=== PATIENT | female | born 1955 | race African-American/Black ===

== ENCOUNTER 2019-10-04 00:58 | Inpatient (IN) | payer MEDICAID ==
[~2019-10-04] VITALS: Ht 180.3 cm; Wt 111.6 kg
[2019-10-04 01:05] VITALS: BP 168/103
--- NOTE | 2019-10-04 01:05 | NUR ---
ED Nurse Note: Pt brought into ED by MAITE RA 69 for SOB. Pt states she has been short of breath for the past month and tonight while attempting to sleep it became worse and she could not breathe. Pt was given albuteral en route by MAITE, 20g IV on Lac started by MAITE. MAITE noted pt o2 sat was in the low 90s on scene before initiating breathing treatment and reported wheezing. When brought into the ED, pt was finishing breathing treatment started by charles at the time. Pt able to speak in full sentences, no cardiac distress noted. Pt is aaox4.
--- NOTE | 2019-10-04 01:15 | NUR ---
ED Nurse Note: Pt finished breathing treatment and taken off oxygen at this time. Pt is having no sob and oxygen sat is 96%, breathing normal unlabored, no use of accessory muscles.
[2019-10-04] MEDS: Albuterol ud Inhalation HHN SCH ×3 (01:21→22:00)
[2019-10-04] MEDS: Ipratropium 0.02% Inh Soln 2.5ml UD HHN SCH ×3 (01:21→22:00)
[2019-10-04 01:42] LABS: BASOPHILS % (AUTO) 1.5 % (0.0-2.0); EOSINOPHILS % (AUTO) 3.3 % (0.0-3.0); HEMATOCRIT 45.5 % (37.0-47.0); HEMOGLOBIN 14.3 G/DL (12.0-16.0); LYMPHOCYTES % (AUTO) 26.2 % (20.0-45.0); MEAN CORPUSCULAR VOLUME 93 FL (80-99); MONOCYTES % (AUTO) 7.9 % (1.0-10.0); PLATELET COUNT 328 K/UL (150-450); RED BLOOD COUNT 4.91 M/UL (4.20-5.40); RED CELL DISTRIBUTION WIDTH 12.2 % (11.6-14.8); WHITE BLOOD COUNT 5.1 K/UL (4.8-10.8)
[2019-10-04 01:50] LABS: ANION GAP 8 mmol/L (5-15); BLOOD UREA NITROGEN 17 mg/dL (7-18); CALCIUM 8.6 MG/DL (8.5-10.1); CARBON DIOXIDE 29 MMOL/L (21-32); CHLORIDE 107 MMOL/L (98-107); CREATININE 0.9 MG/DL (0.55-1.30); POTASSIUM 3.5 MMOL/L (3.5-5.1); SODIUM 144 MMOL/L (136-145)
[2019-10-04 02:00] LABS: ALANINE AMINOTRANSFERASE 25 U/L (12-78); ALBUMIN 3.2 G/DL (3.4-5.0); ALBUMIN/GLOBULIN RATIO 0.7 (1.0-2.7); ALKALINE PHOSPHATASE 95 U/L (46-116); ASPARTATE AMINO TRANSFERASE 18 U/L (15-37); BILIRUBIN,TOTAL 0.4 MG/DL (0.2-1.0)
--- NOTE | 2019-10-04 02:26 | Emergency Room Report ---
History of Present Illness General Chief Complaint: Dyspnea/Respdistress Source: Patient Present Illness HPI 64-year-old female history of anxiety history of cardiomyopathy, hypertension, has a iron caster presents with shortness of breath x1 month, patient states that tonight she felt like her chest was tight and could not get a good breath in, she then received duo nebs by EMS which resolved her symptoms, patient denied any chest pain no nausea no vomiting, she has no any dyspnea on exertion , she does endorse a little bit of a cough, no fevers no chills. Patient states she gets like this when she gets very anxious. Allergies: Coded Allergies: PANTOPRAZOLE (Verified Allergy, Unknown, 10/04/19) Patient History Past Medical History: see triage record Reviewed Nursing Documentation: PMH: Agreed; PSxH: Agreed Nursing Documentation-PMH Past Medical History: No History, Except For Review of Systems All Other Systems: negative except mentioned in HPI Physical Exam Vital Signs Date Time Temp Pulse Resp B/P (MAP) Pulse Ox O2 Delivery O2 Flow Rate FiO2 10/04/19 01:00 97.5 100 13 168/103 (124) 100 Room Air 10/04/19 01:21 21 Sp02 EP Interpretation: reviewed, normal General Appearance: well appearing, no apparent distress, alert Head: normocephalic, atraumatic Eyes: bilateral eye PERRL, bilateral eye EOMI ENT: uvula midline, moist mucus membranes Neck: supple, thyroid normal, supple/symm/no masses Respiratory: lungs clear, no respiratory distress, no retraction, no accessory muscle use Cardiovascular #1: normal peripheral pulses, regular rate, rhythm, no edema, no gallop, no murmur Gastrointestinal: non tender, soft, no guarding, no rebound Musculoskeletal: normal inspection Neurologic: alert, oriented x3 Psychiatric: mood/affect normal Skin: no rash, warm/dry Procedures Critical Care Time Critical Care Time Given the critical condition in which the patient arrived, the patient was immediately assessed by myself and the nurse, and cardiac monitoring initiated due to the potential for rapid decompensation of the patient's clinical condition. During the course of the patient's stay, I spent a considerable amount of time at the bedside performing serial re-evaluations of the patient's hemodynamic and clinical status because of the recognized potential threat to life or limb in this condition. I then had a chance to review not only all of the available current laboratory and radiographic studies obtained today, but I also reviewed old records available to me at the time. Additionally, any ancillary information available including agriculture manager records were reviewed. Sequential vital signs were obtained. Critical Care time of 34 minutes was performed exclusive of billable procedures. Medical Decision Making Diagnostic Impression: Primary Impression: Dyspnea Qualified Codes: R06.00 - Dyspnea, unspecified Additional Impressions: NSTEMI (non-ST elevated myocardial infarction) Chest pain Qualified Codes: R07.9 - Chest pain, unspecified ER Course 64-year-old female multiple comorbidities presents with shortness of breath that has been ongoing for 1 month that resolved with albuterol treatments, differential diagnosis includes ACS, pneumonia, URI, CHF exacerbation Patient with a large heart, patient is aware states that her iron caster is currently managing her symptoms Patient found to have an elevated troponin on the second troponin will give patient aspirin, Lovenox We will admit patient to telemetry for NSTEMI, chest pain and shortness of breath Patient admitted to Dr. Rose under [facility] group Laboratory Tests Test 10/04/19 01:20 10/04/19 03:20 White Blood Count 5.1 K/UL (4.8-10.8) Red Blood Count 4.91 M/UL (4.20-5.40) Hemoglobin 14.3 G/DL (12.0-16.0) Hematocrit 45.5 % (37.0-47.0) Mean Corpuscular Volume 93 FL (80-99) Mean Corpuscular Hemoglobin 29.1 PG (27.0-31.0) Mean Corpuscular Hemoglobin Concent 31.4 G/DL (32.0-36.0) L Red Cell Distribution Width 12.2 % (11.6-14.8) Platelet Count 328 K/UL (150-450) Mean Platelet Volume 6.0 FL (6.5-10.1) L Neutrophils (%) (Auto) 61.0 % (45.0-75.0) Lymphocytes (%) (Auto) 26.2 % (20.0-45.0) Monocytes (%) (Auto) 7.9 % (1.0-10.0) Eosinophils (%) (Auto) 3.3 % (0.0-3.0) H Basophils (%) (Auto) 1.5 % (0.0-2.0) Sodium Level 144 MMOL/L (136-145) Potassium Level 3.5 MMOL/L (3.5-5.1) Chloride Level 107 MMOL/L (98-107) Carbon Dioxide Level 29 MMOL/L (21-32) Anion Gap 8 mmol/L (5-15) Blood Urea Nitrogen 17 mg/dL (7-18) Creatinine 0.9 MG/DL (0.55-1.30) Estimate Glomerular Filtration Rate > 60 mL/min (>60) Glucose Level 150 MG/DL (74-106) H Calcium Level 8.6 MG/DL (8.5-10.1) Total Bilirubin 0.4 MG/DL (0.2-1.0) Aspartate Amino Transferase (AST) 18 U/L (15-37) Alanine Aminotransferase (ALT) 25 U/L (12-78) Alkaline Phosphatase 95 U/L (46-116) Troponin I 0.027 ng/mL (0.000-0.056) 0.126 ng/mL (0.000-0.056) Pro-B-Type Natriuretic Peptide 1231 pg/mL (0-125) H Total Protein 8.1 G/DL (6.4-8.2) Albumin 3.2 G/DL (3.4-5.0) L Globulin 4.9 g/dL Albumin/Globulin Ratio 0.7 (1.0-2.7) L Lipase 121 U/L (73-393) EKG Diagnostic Results EKG Time: 01:53 EP Interpretation: NSR, rate 96, QTc 505, no acute ST elevations, left axis deviation Rhythm Strip Diag. Results Rhythm Strip Time: 02:25 EP Interpretation: yes Rate: 70 Rhythm: NSR, no PVC's, no ectopy Chest X-Ray Diagnostic Results Chest X-Ray Diagnostic Results : Chest X-Ray Ordered: Yes # of Views/Limited/Complete: 1 View Indication: Shortness of Breath EP Interpretation: Yes Interpretation: no consolidation, other - cardiomegaly Impression: Other - cardiomegaly Electronically Signed by: Carson Jimenes MD Last Vital Signs Date Time Temp Pulse Resp B/P (MAP) Pulse Ox O2 Delivery O2 Flow Rate FiO2 10/04/19 01:27 91 18 100 Room Air 21 88 18 100 10/04/19 01:00 97.5 168/103 (124) Disposition: ADMITTED INPATIENT Condition: Stable Crason Jimenes MD Oct 04, 2019 02:26
[2019-10-04 02:35] VITALS: BP 155/87
--- NOTE | 2019-10-04 03:10 | NUR ---
ED Nurse Note: Repeat troponin drawn and sent to lab. Pt resting comfortably in bed at this time. No respiratory distress noted.
[2019-10-04] MEDS ORDERED: Enoxaparin 100mg Inj SUBQ ONE (04:15)
--- NOTE | 2019-10-04 05:55 | NUR ---
ED Nurse Note: report given to MARIELLA Rojas.
--- NOTE | 2019-10-04 06:00 | NUR ---
ED Nurse Note: Pt stable for transfer to tele unit. Pt taken to unit via gurney by 2 RN, connected to inspector fuel hose. Pt is aaox4, vss for pt as charted. Pt denie any pain at this time. Pt belongings sent with pt. No acute distress at this time.
--- NOTE | 2019-10-04 07:00 | NUR ---
NURSE NOTES: RECEIVED PATIENT FROM EMERGENCY ROOM NURSE AT 0623 VIA RNEY; PATIENT AWAKE, ALERT/ORIENTED X4, VERBALLY RESPONSIVE, DENIES PAIN, NO SIGNS AND SYMPTOMS OF ACUTE CARDIO RESPIRATORY DISTRESS/SHORTNESS OF BREATH, DENIES CHEST PAIN, PATIENT PLACED ON SPORTING GOODS SALESPERSON. IV INTACT TO RIGHT AND LEFT AC/GAUGE 20, NO REDNESS/SWELLING NOTED, FLUSHING WELL. ABDOMEN OBESE, NON TENDER, BOWEL SOUNDS AUDIBLE, PATIENT STATED THAT SHE HAD AN EPISODE OF DIARRHEA IN EMERGENCY ROOM, ASSISTED PATIENT TO BEDPAN X2, NO STOOL NOTED. ASSISTED WITH COMFORT. ORIENTATED PATIENT TO ROOM/ENVIRONMENT, ENCOURAGED PATIENT TO UTILIZE CALL LIGHT FOR ASSISTANCE, VERBALIZED UNDERSTANDING. BED IN LOWEST POSITION FOR SAFETY.
--- NOTE | 2019-10-04 07:37 | NUR ---
HAND-OFF: Report given to MARIELLA GRAVES.
--- NOTE | 2019-10-04 07:39 | History and Physical ---
History of Present Illness General Date patient seen: Oct 04, 2019 Reason for Hospitalization: Dyspnea/Respdistress Present Illness HPI This is a 64-year-old obese female with past medical history of obstructive sleep apnea noncompliant with CPAP, hypertension, hyperlipidemia, enlarged heart who presented to the emergency room with severe shortness of breath. Per patient this is been going on for few weeks. She has not been taking her medications nor has she seen a doctor for a while. She has been mourning the loss of her brother and cousin and has been feeling really down. Denied of admission no matter what she did she could not catch her breath. It was worse when she lied down. She denies any chest pain, palpitations, syncope, dizziness or lightheadedness. Patient feels like she does not need a counselor or psychologist to talk to and her daughters are her counselors and that is what she has been using to cope with the loss of her loved ones. She was diagnosed with "enlarged heart" a number of years ago. She does not know the name of her medications and she was unable to bring it with her when she was rushed to leave her house. Her will bring her medications later. She has had both a cardiac stress test and angiography in the past which was unrevealing. Past medical history: SOPHIA, cardiomyopathy, hypertension, hyperlipidemia Past surgical history: Tubal ligation, hernia repair, multiple left knee replacements Social history: History of alcohol use, daily 2 beers, denies smoking cigarettes or marijuana or any illicit drugs Family history: Brother recently from colon cancer Allergies: Coded Allergies: PANTOPRAZOLE (Verified Allergy, Unknown, 10/04/19) Medication History Scheduled Amlodipine Besylate* (Amlodipine Besylate*), 10 MG ORAL DAILY, (Reported) Atorvastatin Calcium* (Atorvastatin Calcium*), 10 MG ORAL BEDTIME, (Reported) Balsalazide Disodium (Balsalazide Disodium), 750 MG PO THREE TIMES A DAY, ( Reported) Carvedilol* (Carvedilol*), 3.125 MG ORAL EVERY 12 HOURS, (Reported) Gabapentin* (Gabapentin*), 300 MG ORAL THREE TIMES A DAY, (Reported) Losartan Potassium* (Losartan Potassium*), 100 MG ORAL DAILY, (Reported) Pantoprazole* (Pantoprazole*), 40 MG ORAL EVERY 12 HOURS, (Reported) Sucralfate* (Carafate*), 1 GM ORAL FOUR TIMES A DAY, (Reported) Patient History Healthcare decision maker Resuscitation status Advanced Directive on File Review of Systems Constitutional: Denies: no symptoms, see HPI, chills, sweats, fever, malaise, weakness, other Eye: Denies: no symptoms, see HPI, eye pain, blurred vision, tearing, double vision, nose pain, nose congestion, acuity changes, discharge, other ENT: Denies: no symptoms, see HPI, ear pain, ear discharge, nose pain, nose congestion, throat pain, throat swelling, mouth pain, hearing loss, nasal discharge, other Respiratory: Reports: shortness of breath Cardiovascular: Denies: no symptoms, see HPI, chest pain, edema, palpitations, syncope, PND, other Gastrointestinal: Denies: no symptoms, see HPI, abdominal pain, constipation, diarrhea, nausea, vomiting, melena, hematemesis, other Genitourinary: Denies: no symptoms, see HPI, discharge, dysuria, frequency, hematuria, pain, retention, incontinence, urgency, vag bleed/dc, other Musculoskeletal: Denies: no symptoms, see HPI, back pain, gout, joint pain, joint swelling, muscle pain, muscle stiffness, other Skin: Denies: no symptoms, see HPI, rash, change in color, change in hair/nails , dryness, lesions, other Psychiatric: Denies: no symptoms, see HPI, prior hx, anxiety, depressed feelings, emotional problems, SI, HI, hallucinations, other Neurological: Denies: no symptoms, see HPI, headache, numbness, paresthesia, seizure, tingling, tremors, focal weakness, syncope, dizziness, other Endocrine: Denies: no symptoms, see HPI, excessive sweating, flushing, intolerance to temperature, increased thirst, increased urine, unexplained weight loss, other Hematologic/Lymphatic: Denies: no symptoms, see HPI, anemia, blood clots, easy bleeding, easy bruising, swollen glands, diathesis, other Physical Exam General Appearance: WD/WN, no apparent distress, obese Lines, tubes and drains: peripheral HEENT: normocephalic, atraumatic, anicteric, mucous membranes moist, PERRL, EOMI Neck: non-tender, supple Respiratory/Chest: lungs clear, normal breath sounds, no respiratory distress, no accessory muscle use Cardiovascular/Chest: normal peripheral pulses, normal rate, regular rhythm, no gallop/murmur, no JVD Abdomen: normal bowel sounds, non tender, soft, no organomegaly, no mass Extremities: normal range of motion, non-tender, no edema, no cyanosis Skin Exam: normal pigmentation, warm/dry Neurologic: physician credentialing specialist II-XII grossly normal, no motor/sensory deficits, alert, oriented x 3, responsive, normal mood/affect Musculoskeletal: normal muscle bulk Last 24 Hour Vital Signs Date Time Temp Pulse Resp B/P (MAP) Pulse Ox O2 Delivery O2 Flow Rate FiO2 10/04/19 06:00 97.5 84 20 149/90 98 Room Air 10/04/19 02:35 97.5 84 16 155/87 96 Room Air 10/04/19 01:27 91 18 100 Room Air 21 88 18 100 10/04/19 01:21 90 18 97 Room Air 21 90 17 92 10/04/19 01:05 97.5 100 13 168/103 100 Non-Rebreather 15.0 10/04/19 01:05 100 13 Non-Rebreather 15.0 10/04/19 01:00 97.5 100 13 168/103 (124) 100 Room Air Intake and Output 10/03/19 10/04/19 19:00 07:00 Intake Total 200 ml Balance 200 ml Intake Oral 200 ml Laboratory Tests Test 10/04/19 01:20 10/04/19 03:20 White Blood Count 5.1 K/UL (4.8-10.8) Red Blood Count 4.91 M/UL (4.20-5.40) Hemoglobin 14.3 G/DL (12.0-16.0) Hematocrit 45.5 % (37.0-47.0) Mean Corpuscular Volume 93 FL (80-99) Mean Corpuscular Hemoglobin 29.1 PG (27.0-31.0) Mean Corpuscular Hemoglobin Concent 31.4 G/DL (32.0-36.0) L Red Cell Distribution Width 12.2 % (11.6-14.8) Platelet Count 328 K/UL (150-450) Mean Platelet Volume 6.0 FL (6.5-10.1) L Neutrophils (%) (Auto) 61.0 % (45.0-75.0) Lymphocytes (%) (Auto) 26.2 % (20.0-45.0) Monocytes (%) (Auto) 7.9 % (1.0-10.0) Eosinophils (%) (Auto) 3.3 % (0.0-3.0) H Basophils (%) (Auto) 1.5 % (0.0-2.0) Sodium Level 144 MMOL/L (136-145) Potassium Level 3.5 MMOL/L (3.5-5.1) Chloride Level 107 MMOL/L (98-107) Carbon Dioxide Level 29 MMOL/L (21-32) Anion Gap 8 mmol/L (5-15) Blood Urea Nitrogen 17 mg/dL (7-18) Creatinine 0.9 MG/DL (0.55-1.30) Estimat Glomerular Filtration Rate > 60 mL/min (>60) Glucose Level 150 MG/DL (74-106) H Calcium Level 8.6 MG/DL (8.5-10.1) Total Bilirubin 0.4 MG/DL (0.2-1.0) Aspartate Amino Transf (AST/SGOT) 18 U/L (15-37) Alanine Aminotransferase (ALT/SGPT) 25 U/L (12-78) Alkaline Phosphatase 95 U/L (46-116) Troponin I 0.027 ng/mL (0.000-0.056) 0.126 ng/mL (0.000-0.056) Pro-B-Type Natriuretic Peptide 1231 pg/mL (0-125) H Total Protein 8.1 G/DL (6.4-8.2) Albumin 3.2 G/DL (3.4-5.0) L Globulin 4.9 g/dL Albumin/Globulin Ratio 0.7 (1.0-2.7) L Lipase 121 U/L (73-393) Height (Feet): 5 Height (Inches): 11.00 Weight (Pounds): 250 Objective Narrative EKG personally reviewed by me shows normal sinus rhythm at 96 bpm, left atrial enlargement, LVH, prolonged QTC no acute ST-T changes Chest x-ray read by radiology: Cardiomegaly with bilateral interstitial edema. Assessment/Plan Problem List: (1) Dyspnea ICD Codes: R06.00 - Dyspnea, unspecified SNOMED: 857212371 Qualifiers: Qualified Codes: R06.00 - Dyspnea, unspecified (2) Chest pain ICD Codes: R07.9 - Chest pain, unspecified SNOMED: 43708731 Qualifiers: Qualified Codes: R07.9 - Chest pain, unspecified (3) Elevated troponin I level ICD Codes: R79.89 - Other specified abnormal findings of blood chemistry SNOMED: 909667172 (4) Obesity (BMI 30.0-34.9) ICD Codes: E66.9 - Obesity, unspecified SNOMED: 788143731916894 (5) HTN (hypertension) ICD Codes: I10 - Essential (primary) hypertension SNOMED: 06947366 (6) SOPHIA (obstructive sleep apnea) ICD Codes: G47.33 - Obstructive sleep apnea (adult) (pediatric) SNOMED: 36776604 (7) HLD (hyperlipidemia) ICD Codes: E78.5 - Hyperlipidemia, unspecified SNOMED: 59166431 (8) GERD (gastroesophageal reflux disease) ICD Codes: K21.9 - Gastro-esophageal reflux disease without esophagitis SNOMED: 066513689 Status: stable Assessment/Plan: This is a 64-year-old female who presented with shortness of breath. In the ER she was found to be hypertensive to systolic blood pressure of 168, elevated troponins up to 0.157, pro BMP 1231, her EKG showed normal sinus rhythm at 96 bpm, left atrial enlargement, LVH, prolonged QTC, no acute ST-T changes. 1. Hypertensive urgency 2. Elevated troponin levels without chest pain or acute ST-T changes on EKG 3. Hypertension 4. SOPHIA, noncompliant with home CPAP 5. Hyperlipidemia 6. Obesity 7. GERD Plan Admit to telemetry Serial cardiac enzymes and EKGs Continue home atorvastatin, amlodipine, carvedilol. Aspirin Cardiology consult 2D echocardiogram to evaluate LV function and look for any wall motion abnormalities Blood pressure control Resume CPAP nightly Patient counseled on weight loss. Patient offered counseling services for grief however she refused saying her daughters are her counselors I spent 70 minutes on this encounter. Greater than 50% spent on counseling care coordination. I spent an additional 35 minutes in reviewing previous hospitalizations, outside records. I also spent 15 minutes in advance directive discussion with patient. Will offer her POLST form and sign before discharge. Plan of care discussed with patient, cardiology and RN. Time of note may not reflect time of encounter. Darien Rose M.D. Oct 04, 2019 07:39
--- NOTE | 2019-10-04 07:40 | NUR ---
NURSE NOTES: Received pt in bed, AAO x 4. Room air. No c/o of pain/distress at this moment. IV on RAC and LAC 20g intact and patent, with saline lock. Side rails x 2. Bed in the lowest, locked, and alarm on. Call light within reach. Will continue to monitor
[2019-10-04] MEDS ORDERED: LORazepam 1mg tab ORAL PRN (07:45)
[2019-10-04] MEDS ORDERED: Nitroglycerin Subl 0.4mg tab SL PRN (07:45)
[2019-10-04] MEDS ORDERED: Miralax 17gm pkt ORAL PRN (07:45)
[2019-10-04 08:00] VITALS: BP 167/106
[2019-10-04 09:55] LABS: CHOLESTEROL 137 MG/DL (< 200); HDL CHOLESTEROL 94 MG/DL (40-60); TRIGLYCERIDES 40 MG/DL (30-150)
[2019-10-04] MEDS: Heparin 5000 units/ml inj SUBQ SCH ×2 (09:59→21:04)
--- NOTE | 2019-10-04 11:58 | NUR ---
*-* NO INSURANCE INFORMATION INT HEB AR UNABLE TO SEND CLINCALS OR REVIEWS *-*
[2019-10-04] MEDS ORDERED: BALSALAZIDE DI750 MG PO (14:51)
[2019-10-04] MEDS ORDERED: CARVEDILOL3.125 MG ORAL (14:51)
[2019-10-04] MEDS ORDERED: GABAPENTIN300 MG ORAL (14:51)
[2019-10-04] MEDS ORDERED: CARAFATE1 G1 ORAL (14:51)
[2019-10-04] MEDS ORDERED: AMLODIPINE BESY10 MG ORAL (14:51)
[2019-10-04] MEDS ORDERED: LOSARTAN POTASS50 MG ORAL (14:55)
[2019-10-04] MEDS ORDERED: ATORVASTATIN CA20 MG ORAL (14:55)
[2019-10-04] MEDS ORDERED: PANTOPRAZOLE SO40 MG ORAL (14:55)
--- NOTE | 2019-10-04 15:45 | Cardiac Electrophysiology PN ---
Subjective Subjective [id number] Objective Last 24 Hour Vital Signs Date Time Temp Pulse Resp B/P (MAP) Pulse Ox O2 Delivery O2 Flow Rate FiO2 10/04/19 09:57 167/106 10/04/19 09:00 Room Air 10/04/19 08:00 57 10/04/19 08:00 97.5 73 18 167/106 (126) 97 10/04/19 07:56 Room Air 10/04/19 06:00 97.5 84 20 149/90 98 Room Air 10/04/19 02:35 97.5 84 16 155/87 96 Room Air 10/04/19 01:27 91 18 100 Room Air 21 88 18 100 10/04/19 01:21 90 18 97 Room Air 21 90 17 92 10/04/19 01:05 97.5 100 13 168/103 100 Non-Rebreather 15.0 10/04/19 01:05 100 13 Non-Rebreather 15.0 10/04/19 01:00 97.5 100 13 168/103 (124) 100 Room Air Intake and Output 10/03/19 10/04/19 19:00 07:00 Intake Total 200 ml Balance 200 ml Intake Oral 200 ml Laboratory Tests Test 10/04/19 01:20 10/04/19 03:20 10/04/19 08:50 White Blood Count 5.1 K/UL (4.8-10.8) Red Blood Count 4.91 M/UL (4.20-5.40) Hemoglobin 14.3 G/DL (12.0-16.0) Hematocrit 45.5 % (37.0-47.0) Mean Corpuscular Volume 93 FL (80-99) Mean Corpuscular Hemoglobin 29.1 PG (27.0-31.0) Mean Corpuscular Hemoglobin Concent 31.4 G/DL (32.0-36.0) L Red Cell Distribution Width 12.2 % (11.6-14.8) Platelet Count 328 K/UL (150-450) Mean Platelet Volume 6.0 FL (6.5-10.1) L Neutrophils (%) (Auto) 61.0 % (45.0-75.0) Lymphocytes (%) (Auto) 26.2 % (20.0-45.0) Monocytes (%) (Auto) 7.9 % (1.0-10.0) Eosinophils (%) (Auto) 3.3 % (0.0-3.0) H Basophils (%) (Auto) 1.5 % (0.0-2.0) Sodium Level 144 MMOL/L (136-145) Potassium Level 3.5 MMOL/L (3.5-5.1) Chloride Level 107 MMOL/L (98-107) Carbon Dioxide Level 29 MMOL/L (21-32) Anion Gap 8 mmol/L (5-15) Blood Urea Nitrogen 17 mg/dL (7-18) Creatinine 0.9 MG/DL (0.55-1.30) Estimat Glomerular Filtration Rate > 60 mL/min (>60) Glucose Level 150 MG/DL (74-106) H Calcium Level 8.6 MG/DL (8.5-10.1) Total Bilirubin 0.4 MG/DL (0.2-1.0) Aspartate Amino Transf (AST/SGOT) 18 U/L (15-37) Alanine Aminotransferase (ALT/SGPT) 25 U/L (12-78) Alkaline Phosphatase 95 U/L (46-116) Troponin I 0.027 ng/mL (0.000-0.056) 0.126 ng/mL (0.000-0.056) 0.157 ng/mL (0.000-0.056) Pro-B-Type Natriuretic Peptide 1231 pg/mL (0-125) H Total Protein 8.1 G/DL (6.4-8.2) Albumin 3.2 G/DL (3.4-5.0) L Globulin 4.9 g/dL Albumin/Globulin Ratio 0.7 (1.0-2.7) L Lipase 121 U/L (73-393) Hemoglobin A1c 5.0 % (4.3-6.0) Triglycerides Level 40 MG/DL (30-150) Cholesterol Level 137 MG/DL (< 200) LDL Cholesterol 26 mg/dL (<100) HDL Cholesterol 94 MG/DL (40-60) H Cholesterol/HDL Ratio 1.5 (3.3-4.4) L Thyroid Stimulating Hormone (TSH) 0.597 uiU/mL (0.358-3.740) Lucas Low MD Oct 04, 2019 15:45
[2019-10-04] MEDS ORDERED: Lexiscan 0.4mg/5ml syringe IV PRN (15:48)
[2019-10-04] MEDS: Sucralfate 1gm tab ORAL SCH ×2 (17:34→21:01)
--- NOTE | 2019-10-04 17:54 | Diagnostic Imaging Report ---
Indication: Shortness of breath Technique: One view of the chest Comparison: none Findings: The heart is enlarged. There is bilateral interstitial congestion. No definite effusions. Impression: Cardiomegaly with bilateral interstitial edema
--- NOTE | 2019-10-04 18:52 | NUR ---
CASE MANAGEMENT: REVIEW 64 YEAR OLD FEMALE BIBA FROM HOME CC: SOB . CHEST PAIN . HX ANXIETY . CARDIOMYOPATHY . HTN SI: NSTEMI . DYSPNEA T 97.5 HR 57 RR 18 BP 167/106 SAT 97% ROOM AIR TROP 0.157 CXR -- CARDIOMEGALY WITH BILATERAL INTERSTITIAL EDEMA IS: NS IVF BOLUS X1 PREDNISONE 60MG PO X1 ATROVENT HHN X1 ALBUTEROL HHN X1 LOVENOX SUBQ X1 ASA 325MG PO X1 PATIENT ADMITTED TO TELEMETRY UNIT 10/04/2019 DCP: PATIENT IS FROM HOME
--- NOTE | 2019-10-04 19:09 | NUR ---
HAND-OFF: Report given to MARIELLA Torres.
--- NOTE | 2019-10-04 19:09 | NUR ---
NURSE NOTES: Received report from MARIELLA Roger, patient in stable condition, AOx4, denies pain at this time, resting in bed, bed low&locked, side rails upx2, call light within reach, will continue to monitor and reassess
[2019-10-04 20:59] VITALS: BP 152/89
[2019-10-05 00:01] VITALS: BP 146/84
[2019-10-05 03:10] LABS: BASOPHILS % (AUTO) 1.4 % (0.0-2.0); EOSINOPHILS % (AUTO) 1.4 % (0.0-3.0); HEMATOCRIT 38.8 % (37.0-47.0); HEMOGLOBIN 12.5 G/DL (12.0-16.0); LYMPHOCYTES % (AUTO) 33.5 % (20.0-45.0); MEAN CORPUSCULAR VOLUME 92 FL (80-99); MONOCYTES % (AUTO) 13.3 % (1.0-10.0); NEUTROPHILS % (AUTO) 50.3 % (45.0-75.0); PLATELET COUNT 300 K/UL (150-450); RED BLOOD COUNT 4.21 M/UL (4.20-5.40); RED CELL DISTRIBUTION WIDTH 12.3 % (11.6-14.8); WHITE BLOOD COUNT 5.6 K/UL (4.8-10.8)
[2019-10-05 03:31] LABS: ANION GAP 8 mmol/L (5-15); BLOOD UREA NITROGEN 20 mg/dL (7-18); CALCIUM 8.4 MG/DL (8.5-10.1); CARBON DIOXIDE 28 MMOL/L (21-32); CHLORIDE 110 MMOL/L (98-107); CREATININE 0.8 MG/DL (0.55-1.30); POTASSIUM 3.4 MMOL/L (3.5-5.1); SODIUM 146 MMOL/L (136-145)
[2019-10-05 04:00] VITALS: BP 112/58
--- NOTE | 2019-10-05 05:30 | Consultation ---
DATE OF CONSULTATION: 10/04/2019 CARDIOLOGY CONSULTATION CONSULTING PHYSICIAN: Lucas Low M.D. REFERRING PHYSICIAN: Ze Rivera M.D. ADDITIONAL REFERRING PHYSICIAN: Dr. Rose. REASON FOR CONSULTATION: Chest pain. HISTORY OF PRESENT ILLNESS: The patient is a very pleasant 64-year-old lady with history of anxiety and hypertension, who presented to the emergency room with shortness of breath of one-month duration. The patient stated that she felt some soreness in her throat. Per ER record, there was chest tightness, but the patient denies any chest pain. The patient denies any prior myocardial infarction, coronary artery disease, or congestive heart failure. REVIEW OF SYSTEMS: Negative other than what was mentioned in history of present illness. PAST MEDICAL HISTORY: As mentioned above. FAMILY HISTORY: Noncontributory. SOCIAL HISTORY: She lives at home. Does not smoke or drink alcohol. PHYSICAL EXAMINATION: VITAL SIGNS: Blood pressure 161/106, pulse 73, respirations 18, and temperature 97.5. HEAD AND NECK: Showed no JVD. LUNGS: Clear. CARDIOVASCULAR: Shows regular S1 and S2 with no gallop or murmur. ABDOMEN: Soft. EXTREMITIES: No pitting edema. LABORATORY AND DIAGNOSTIC STUDIES: EKG shows normal sinus rhythm with no acute ST-T wave abnormality. Echocardiogram showed normal EF. Troponins 0.027, 0.126, and 0.157. Sodium 144, potassium 3.5, BUN 17, creatinine 0.9, and glucose of 150. White count of 5.1, hematocrit of 14.2 hematocrit of 45.5, and platelet count 328,000. ASSESSMENT AND PLAN: 1. Chest pain in a patient with history of hypertension. The first troponin was negative; however, the two subsequent troponins were elevated even though they are mildly elevated, but they are rising. Currently, she does not have any chest pain or shortness of breath. We will repeat cardiac enzymes, repeat EKG, and schedule the patient for stress test in the morning. If troponin get really high, we may need to transfer the patient for cardiac catheterization. But again at this time, the patient does not have any chest pain and EKG does not show any ST elevation. 2. Hypertension. Add metoprolol to her medical regimen. The patient is also on nitroglycerin. 3. Obesity. 4. Anxiety disorder. Thank you very much, Dr. Rivera, for allowing me to participate in the care of this patient. Please do not hesitate to contact me for any questions regarding my evaluation. Lucas Low M.D. DR: KASIE JOB#: [id number] CC:
--- NOTE | 2019-10-05 07:16 | NUR ---
HAND-OFF: Report given to JesusRN,patient stable, plan of care endorsed.
--- NOTE | 2019-10-05 07:32 | NUR ---
NURSE NOTES: Received pt in bed, AAO x 3. NC 2L/min. c/o of shortness of breath, crying. Called RT for breathing treatment. IV on RAC 20g and LAC 20g intact and patent, with saline lock. Side rails x2. Bed in the lowest and locked. Bedside commode and walker noted at the bedside. Call light within reach. Will continue to monitor.
[2019-10-05] MEDS: Albuterol/Ipratropium 3ml neb HHN PRN ×2 (07:33→21:52)
[2019-10-05 08:00] VITALS: BP 148/101
--- NOTE | 2019-10-05 08:51 | NUR ---
CASE MANAGEMENT: REVIEW 10/05/2019 SI: NSTEMI. DYSPNEA T 97.5 HR 97 RR 20 B/P 148/101 SATS 97% ON 2L/NC NA 146 K 3.4 CL 110 BUN 20 GLU 108 CA 8.4 IS: COREG PO Q12H LIPITOR PO QHS NORVASC PO QD COZAAR PO QD CARAFATE PO QID TELE DCP: PATIENT IS FROM HOME PLAN OF CARE : LEXISCAN Addendum: 10/05/19 at 0904 by Mariah Duran CM INTERQUAL MET
[2019-10-05] MEDS: Sucralfate 1gm tab ORAL SCH ×4 (09:00→21:50)
[2019-10-05] MEDS: Heparin 5000 units/ml inj SUBQ SCH ×2 (09:00→21:51)
[2019-10-05] MEDS: Losartan 50mg tab ORAL SCH (09:00)
--- NOTE | 2019-10-05 09:50 | NUR ---
NURSE NOTES: Pt is off unit for NM
--- NOTE | 2019-10-05 10:20 | NUR ---
*-* INSURANCE *-* ALL CLINICALS AND REVIEWS HAVE BEEN FAXED TO: [facility] [phone] JODY Najera/JEAN PIERRE AGUILAR PROVIDED TRACKING#[id number] MERISSA PAL PH# FAX# REVIEWS/CLINICALS Addendum: 10/05/19 at 1103 by MIKAELA SYKES CM BS Ref# [id number] Merissa PAL yet fax#[phone]
--- NOTE | 2019-10-05 10:23 | NUR ---
NURSE NOTES: Pt is back on unit
--- NOTE | 2019-10-05 11:18 | Cardiac Electrophysiology PN ---
Assessment/Plan Assessment/Plan 1. Chest pain in a patient with history of hypertension. The first and last troponins were negative and the 3 middle ones only around 0.1. Currently, she does not have any chest pain or shortness of breath. Stress test pending today. 2. Hypertension. On Coreg 3.125 bid, Norvasc 10 and Cozaar 100 daily 3. Obesity. 4. Anxiety disorder. SONDRA RN Subjective Subjective Feeling better. No CP or SOB, Scheduled for stress test today Objective Last 24 Hour Vital Signs Date Time Temp Pulse Resp B/P (MAP) Pulse Ox O2 Delivery O2 Flow Rate FiO2 10/05/19 09:00 Room Air 10/05/19 08:00 97.5 65 20 148/101 (117) 97 10/05/19 08:00 74 10/05/19 07:33 97 Nasal Cannula 2.0 28 10/05/19 07:33 72 18 99 65 18 97 10/05/19 07:33 65 18 97 Nasal Cannula 2.0 28 10/05/19 05:30 82 14 98 Facial 28 10/05/19 04:11 78 10/05/19 04:00 98.0 63 18 112/58 (76) 98 10/05/19 03:14 80 13 97 Facial 28 10/05/19 01:41 84 17 98 Facial 28 10/05/19 00:15 90 15 98 Facial 28 10/05/19 00:01 97.6 73 18 146/84 (104) 100 10/05/19 00:00 96 Nasal Cannula 2.0 28 10/05/19 00:00 71 10/04/19 21:02 78 152/89 10/04/19 21:00 Room Air 10/04/19 20:59 97.8 78 18 152/89 (110) 100 10/04/19 20:00 81 10/04/19 16:00 78 10/04/19 12:00 83 Intake and Output 10/04/19 10/05/19 19:00 07:00 Intake Total 360 ml 240 ml Balance 360 ml 240 ml Intake Oral 360 ml 240 ml # Voids 6 1 # Bowel Movements 1 Laboratory Tests Test 10/04/19 18:35 10/05/19 02:55 Troponin I 0.109 ng/mL (0.000-0.056) 0.056 ng/mL (0.000-0.056) White Blood Count 5.6 K/UL (4.8-10.8) Red Blood Count 4.21 M/UL (4.20-5.40) Hemoglobin 12.5 G/DL (12.0-16.0) Hematocrit 38.8 % (37.0-47.0) Mean Corpuscular Volume 92 FL (80-99) Mean Corpuscular Hemoglobin 29.6 PG (27.0-31.0) Mean Corpuscular Hemoglobin Concent 32.1 G/DL (32.0-36.0) Red Cell Distribution Width 12.3 % (11.6-14.8) Platelet Count 300 K/UL (150-450) Mean Platelet Volume 5.7 FL (6.5-10.1) L Neutrophils (%) (Auto) 50.3 % (45.0-75.0) Lymphocytes (%) (Auto) 33.5 % (20.0-45.0) Monocytes (%) (Auto) 13.3 % (1.0-10.0) H Eosinophils (%) (Auto) 1.4 % (0.0-3.0) Basophils (%) (Auto) 1.4 % (0.0-2.0) Sodium Level 146 MMOL/L (136-145) H Potassium Level 3.4 MMOL/L (3.5-5.1) L Chloride Level 110 MMOL/L (98-107) H Carbon Dioxide Level 28 MMOL/L (21-32) Anion Gap 8 mmol/L (5-15) Blood Urea Nitrogen 20 mg/dL (7-18) H Creatinine 0.8 MG/DL (0.55-1.30) Estimat Glomerular Filtration Rate > 60 mL/min (>60) Glucose Level 108 MG/DL (74-106) H Calcium Level 8.4 MG/DL (8.5-10.1) L Pro-B-Type Natriuretic Peptide 1454 pg/mL (0-125) H Objective HEAD AND NECK: No JVD. LUNGS: Clear. CARDIOVASCULAR: Shows regular S1 and S2 with no gallop or murmur. ABDOMEN: Soft. EXTREMITIES: No pitting edema. Lucas Low MD Oct 05, 2019 11:18
[2019-10-05 12:00] VITALS: BP 146/70
--- NOTE | 2019-10-05 13:47 | General Progress Note ---
Assessment/Plan Problem List: (1) Dyspnea ICD Codes: R06.00 - Dyspnea, unspecified SNOMED: 041102516 Qualifiers: Qualified Codes: R06.00 - Dyspnea, unspecified (2) Chest pain ICD Codes: R07.9 - Chest pain, unspecified SNOMED: 44053626 Qualifiers: Qualified Codes: R07.9 - Chest pain, unspecified (3) Elevated troponin I level ICD Codes: R79.89 - Other specified abnormal findings of blood chemistry SNOMED: 386001558 (4) Obesity (BMI 30.0-34.9) ICD Codes: E66.9 - Obesity, unspecified SNOMED: 593767405079748 (5) HTN (hypertension) ICD Codes: I10 - Essential (primary) hypertension SNOMED: 92132756 (6) SOPHIA (obstructive sleep apnea) ICD Codes: G47.33 - Obstructive sleep apnea (adult) (pediatric) SNOMED: 73132701 (7) HLD (hyperlipidemia) ICD Codes: E78.5 - Hyperlipidemia, unspecified SNOMED: 59802545 (8) GERD (gastroesophageal reflux disease) ICD Codes: K21.9 - Gastro-esophageal reflux disease without esophagitis SNOMED: 167961602 Status: stable Assessment/Plan: This is a 64-year-old female who presented with shortness of breath. In the ER she was found to be hypertensive to systolic blood pressure of 168, elevated troponins up to 0.157 then normal, pro BMP 1231, her EKG showed normal sinus rhythm at 96 bpm, left atrial enlargement, LVH, prolonged QTC, no acute ST-T changes. CXR with mild edema. 1. Hypertensive urgency 2. Elevated troponin levels without chest pain or acute ST-T changes on EKG 3. Hypertension 4. SOPHIA, noncompliant with home CPAP 5. Hyperlipidemia 6. Obesity 7. GERD Plan telemetry Serial cardiac enzymes and EKGs, last troponin negative, she is for stress test today Continue home atorvastatin, amlodipine, carvedilol. Aspirin, Norvasc, cozar Cardiology consult appreciated 2D echocardiogram to evaluate LV function and look for any wall motion abnormalities---> LVH, diastolic dysfunction, atrial enlargement one dose of lasix 40mg IV, monitor for improvement Blood pressure control Resume CPAP nightly Patient counseled on weight loss. Patient offered counseling services for grief however she refused saying her daughters are her counselors I spent 40 minutes on this encounter. Greater than 50% spent on counseling care coordination. Plan of care discussed with patient, cardiology and RN. Time of note may not reflect time of encounter. Subjective Date patient seen: Oct 05, 2019 ROS Limited/Unobtainable: No Constitutional: Denies: no symptoms, chills, diaphoresis, fever, malaise, weakness, other Cardiovascular: Denies: no symptoms, chest pain, edema, irregular heart rate, lightheadedness, palpitations, syncope, other Respiratory: Reports: shortness of breath Gastrointestinal/Abdominal: Denies: no symptoms, abdomen distended, abdominal pain, black stools, tarry stools, blood in stool, constipated, diarrhea, difficulty swallowing, nausea, poor appetite, poor fluid intake, rectal bleeding , vomiting, other Genitourinary: Denies: no symptoms, burning, discharge, frequency, flank pain, hematuria, incontinence, pain, urgency, other Neurologic/Psychiatric: Denies: no symptoms, anxiety, depressed, emotional problems, headache, numbness, paresthesia, pre-existing deficit, seizure, tingling, tremors, weakness, other Endocrine: Denies: no symptoms, excessive sweating, flushing, intolerance to cold, intolerance to heat, increased hunger, increased thirst, increased urine, unexplained weight gain, unexplained weight loss, other Hematologic/Lymphatic: Denies: no symptoms, anemia, easy bleeding, easy bruising, other Allergies: Coded Allergies: PANTOPRAZOLE (Verified Allergy, Unknown, 10/04/19) Subjective wore cpap and slept well. this morning has sob and placed on O2. she is going for stress test today Objective Last 24 Hour Vital Signs Date Time Temp Pulse Resp B/P (MAP) Pulse Ox O2 Delivery O2 Flow Rate FiO2 10/05/19 12:00 97.3 91 18 146/70 (95) 96 10/05/19 09:00 Room Air 10/05/19 08:00 97.5 65 20 148/101 (117) 97 10/05/19 08:00 74 10/05/19 07:33 97 Nasal Cannula 2.0 28 10/05/19 07:33 72 18 99 65 18 97 10/05/19 07:33 65 18 97 Nasal Cannula 2.0 28 10/05/19 05:30 82 14 98 Facial 28 10/05/19 04:11 78 10/05/19 04:00 98.0 63 18 112/58 (76) 98 10/05/19 03:14 80 13 97 Facial 28 10/05/19 01:41 84 17 98 Facial 28 10/05/19 00:15 90 15 98 Facial 28 10/05/19 00:01 97.6 73 18 146/84 (104) 100 10/05/19 00:00 96 Nasal Cannula 2.0 28 10/05/19 00:00 71 10/04/19 21:02 78 152/89 10/04/19 21:00 Room Air 10/04/19 20:59 97.8 78 18 152/89 (110) 100 10/04/19 20:00 81 10/04/19 16:00 78 Intake and Output 10/04/19 10/05/19 19:00 07:00 Intake Total 360 ml 240 ml Balance 360 ml 240 ml Intake Oral 360 ml 240 ml # Voids 6 1 # Bowel Movements 1 Laboratory Tests 10/04/19 18:35: Troponin I 0.109H 10/05/19 02:55: Troponin I 0.056, White Blood Count 5.6, Red Blood Count 4.21, Hemoglobin 12.5, Hematocrit 38.8, Mean Corpuscular Volume 92, Mean Corpuscular Hemoglobin 29.6, Mean Corpuscular Hemoglobin Concent 32.1, Red Cell Distribution Width 12.3, Platelet Count 300, Mean Platelet Volume 5.7L, Neutrophils (%) (Auto) 50.3, Lymphocytes (%) (Auto) 33.5, Monocytes (%) (Auto) 13.3H, Eosinophils (%) (Auto) 1.4, Basophils (%) (Auto) 1.4, Sodium Level 146H, Potassium Level 3.4L, Chloride Level 110H, Carbon Dioxide Level 28, Anion Gap 8, Blood Urea Nitrogen 20H, Creatinine 0.8, Estimat Glomerular Filtration Rate > 60, Glucose Level 108H , Calcium Level 8.4L, Pro-B-Type Natriuretic Peptide 1454H Height (Feet): 5 Height (Inches): 11.00 Weight (Pounds): 250 Objective General Appearance: WD/WN, no apparent distress, obese Lines, tubes and drains: peripheral HEENT: normocephalic, atraumatic, anicteric, mucous membranes moist, PERRL, EOMI Neck: non-tender, supple Respiratory/Chest: lungs clear, normal breath sounds, no respiratory distress, no accessory muscle use Cardiovascular/Chest: normal peripheral pulses, normal rate, regular rhythm, no gallop/murmur, no JVD Abdomen: normal bowel sounds, non tender, soft, no organomegaly, no mass Extremities: normal range of motion, non-tender, no edema, no cyanosis Skin Exam: normal pigmentation, warm/dry 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 Oct 05, 2019 13:47
[2019-10-05 16:00] VITALS: BP 135/79
--- NOTE | 2019-10-05 16:06 | Diagnostic Imaging Report ---
Indications: Chest pain Technique: Single day single isotope protocol utilized. Initially, resting images obtained using IV administration 10 millicuries 99M technetium Myoview. Subsequently, patient underwent lexiscan stress testing. See cardiology report for details. During Lexiscan infusion, IV administration 32.4 mCi 99 M technetium Myoview. SPECT and planar images obtained. SPECT images gated to 8 phases of the cardiac cycle were also obtained, and reformatted into cine images for evaluation of ejection fraction. Comparison: none Findings: Per cardiology report, patient experienced shortness of breath, headache, nausea. Per cardiology report, resting EKG demonstrates . No ST-T wave changes noted during infusion.. Imaging demonstrates decreased perfusion in the anterior wall which improves on the resting images. There is mild left ventricular chamber dilatation.. Calculated post stress ejection fraction 37%. Hypokinesis appears to be global Impression: Nonischemic clinical response to pharmacologic stress, per cardiology report Nonischemic electrocardiographic response to pharmacologic stress, per cardiology report Anterior wall perfusion defect, suspicious for anterior wall ischemia Calculated post stress ejection fraction 37%
--- NOTE | 2019-10-05 19:49 | NUR ---
HAND-OFF: Report given to MARIELLA Quinn.
--- NOTE | 2019-10-05 19:50 | NUR ---
NURSE NOTES: received pt from Kana WOLFF., pt is awake and AOx4 Kittitian speaker. pt states no pain at this moment. no SOB noted at this time with RA , O2sat is at 98%. previous nurse states no dysrhythmia.bed at the lowest position, alarmed, and locked. Left hand 22G Saline Locked intact, clean, and patent. call light within reach. will continue to monitor pt with plan of care.
--- NOTE | 2019-10-06 02:15 | NUR ---
NURSE NOTES: change the bed for the pt. no SOB noted. pt is off from the bipap at this moment. call light within reach.
[2019-10-06] MEDS: Sucralfate 1gm tab ORAL SCH ×4 (06:18→20:33)
[2019-10-06 07:14] LABS: ANION GAP 9 mmol/L (5-15); BLOOD UREA NITROGEN 20 mg/dL (7-18); CALCIUM 8.9 MG/DL (8.5-10.1); CARBON DIOXIDE 25 MMOL/L (21-32); CHLORIDE 110 MMOL/L (98-107); CREATININE 0.8 MG/DL (0.55-1.30); POTASSIUM 3.8 MMOL/L (3.5-5.1); SODIUM 144 MMOL/L (136-145)
--- NOTE | 2019-10-06 07:31 | NUR ---
NURSE NOTES: Report received from MARIELLA Mora. Pt. AOx4. RA. Voiced feeling much better today. L H 22g IV site intact. Bed on lowest position, side rails upx2, brakes engaged. Call light within easy reach. Fall precaution reminder given. Plan of care communicated.
--- NOTE | 2019-10-06 07:57 | NUR ---
HAND-OFF: Report given to Rex WOLFF., pt is in stable condition.
[2019-10-06 08:00] VITALS: BP 141/73
--- NOTE | 2019-10-06 08:10 | NUR ---
NURSE NOTES: L IV swollen, removed.
[2019-10-06] MEDS: Losartan 50mg tab ORAL SCH (09:19)
[2019-10-06] MEDS: Furosemide 40mg tab ORAL SCH (09:20)
[2019-10-06] MEDS: Heparin 5000 units/ml inj SUBQ SCH ×2 (09:23→20:34)
[2019-10-06] MEDS ORDERED: FUROSEMIDE40 MG ORAL ×3 (10:03→14:09)
--- NOTE | 2019-10-06 10:04 | Discharge Summary ---
Discharge Summary Hospital Course Date of Admission Oct 04, 2019 at 04:51 Date of Discharge 10/06/2019 Admitting Diagnosis chest pain, sob, nstemi HPI Danisha Can is a 64 year old female who was admitted on Oct 04, 2019 at 04: 51 for Chest Pain/Shortness Of Breath/Nstemi Hospital Course This is a 64-year-old female who presented with shortness of breath. In the ER she was found to be hypertensive to systolic blood pressure of 168, elevated troponins up to 0.157 then normal, pro BMP 1231, her EKG showed normal sinus rhythm at 96 bpm, left atrial enlargement, LVH, prolonged QTC, no acute ST-T changes. CXR with mild edema. 1. Hypertensive urgency 2. Elevated troponin levels without chest pain or acute ST-T changes on EKG 3. Hypertension 4. SOPHIA, noncompliant with home CPAP 5. Hyperlipidemia 6. Obesity 7. GERD Plan telemetry Serial cardiac enzymes and EKGs, last troponin negative, she is for stress test today Continue home atorvastatin, amlodipine, carvedilol. Aspirin, Norvasc, cozar Cardiology consult appreciated 2D echocardiogram to evaluate LV function and look for any wall motion abnormalities---> LVH, diastolic dysfunction, atrial enlargement one dose of lasix 40mg IV, monitor for improvement Blood pressure control Resume CPAP nightly Patient counseled on weight loss. Patient offered counseling services for grief however she refused saying her daughters are her counselors I spent 40 minutes on this encounter. Greater than 50% spent on counseling care coordination. Plan of care discussed with patient, cardiology and RN. Time of note may not reflect time of encounter. Discharge Discharge Disposition Patient was discharged to Darien Rose M.D. Oct 06, 2019 10:04
--- NOTE | 2019-10-06 10:12 | General Progress Note ---
Assessment/Plan Problem List: (1) Dyspnea ICD Codes: R06.00 - Dyspnea, unspecified SNOMED: 298827195 Qualifiers: Qualified Codes: R06.00 - Dyspnea, unspecified (2) Chest pain ICD Codes: R07.9 - Chest pain, unspecified SNOMED: 06051891 Qualifiers: Qualified Codes: R07.9 - Chest pain, unspecified (3) Elevated troponin I level ICD Codes: R79.89 - Other specified abnormal findings of blood chemistry SNOMED: 709520976 (4) Obesity (BMI 30.0-34.9) ICD Codes: E66.9 - Obesity, unspecified SNOMED: 206851487267780 (5) HTN (hypertension) ICD Codes: I10 - Essential (primary) hypertension SNOMED: 75624679 (6) SOPHIA (obstructive sleep apnea) ICD Codes: G47.33 - Obstructive sleep apnea (adult) (pediatric) SNOMED: 81798574 (7) HLD (hyperlipidemia) ICD Codes: E78.5 - Hyperlipidemia, unspecified SNOMED: 65971375 (8) GERD (gastroesophageal reflux disease) ICD Codes: K21.9 - Gastro-esophageal reflux disease without esophagitis SNOMED: 362389596 Status: stable Assessment/Plan: This is a 64-year-old female who presented with shortness of breath. In the ER she was found to be hypertensive to systolic blood pressure of 168, elevated troponins up to 0.157 then normal, pro BMP 1231, her EKG showed normal sinus rhythm at 96 bpm, left atrial enlargement, LVH, prolonged QTC, no acute ST-T changes. CXR with mild edema. 1. Hypertensive urgency 2. Elevated troponin levels without chest pain or acute ST-T changes on EKG 3. Hypertension 4. SOPHIA, noncompliant with home CPAP 5. Hyperlipidemia 6. Obesity 7. GERD Plan telemetry Serial cardiac enzymes and EKGs, last troponin negative, she is for stress test today Continue home atorvastatin, amlodipine, carvedilol. Aspirin, Norvasc, cozar Cardiology consult appreciated 2D echocardiogram to evaluate LV function and look for any wall motion abnormalities---> LVH, diastolic dysfunction, atrial enlargement one dose of lasix 40mg IV, monitor for improvement Blood pressure control Resume CPAP nightly Patient counseled on weight loss. Patient offered counseling services for grief however she refused saying her daughters are her counselors I spent 40 minutes on this encounter. Greater than 50% spent on counseling care coordination. Plan of care discussed with patient, cardiology and RN. Time of note may not reflect time of encounter. Subjective Date patient seen: Oct 06, 2019 Allergies: Coded Allergies: PANTOPRAZOLE (Verified Allergy, Unknown, 10/04/19) Subjective wore cpap and slept well. this morning has sob and placed on O2. she is going for stress test today Objective Last 24 Hour Vital Signs Date Time Temp Pulse Resp B/P (MAP) Pulse Ox O2 Delivery O2 Flow Rate FiO2 10/06/19 09:21 85 141/73 10/06/19 09:20 85 141/73 10/06/19 09:19 141/73 10/06/19 03:26 100 10/06/19 02:54 84 24 96 Facial 28 10/06/19 01:46 86 25 97 Facial 28 10/05/19 23:36 80 10/05/19 23:20 90 15 96 Facial 28 10/05/19 21:56 84 18 95 Room Air 21 10/05/19 21:56 95 Room Air 21 10/05/19 21:52 86 18 99 Room Air 21 84 18 95 10/05/19 21:00 73 98/41 10/05/19 21:00 Room Air 10/05/19 20:25 84 10/05/19 16:00 97.2 88 20 135/79 (97) 97 10/05/19 16:00 86 10/05/19 12:00 85 10/05/19 12:00 97.3 91 18 146/70 (95) 96 Intake and Output 10/05/19 10/06/19 19:00 07:00 Intake Total 360 ml Balance 360 ml Intake Oral 360 ml # Voids 4 2 # Bowel Movements 1 2 Laboratory Tests 10/06/19 06:00: Sodium Level 144, Potassium Level 3.8, Chloride Level 110H, Carbon Dioxide Level 25, Anion Gap 9, Blood Urea Nitrogen 20H, Creatinine 0.8, Estimat Glomerular Filtration Rate > 60, Glucose Level 103, Calcium Level 8.9 Height (Feet): 5 Height (Inches): 11.00 Weight (Pounds): 246 Objective General Appearance: WD/WN, no apparent distress, obese Lines, tubes and drains: peripheral HEENT: normocephalic, atraumatic, anicteric, mucous membranes moist, PERRL, EOMI Neck: non-tender, supple Respiratory/Chest: lungs clear, normal breath sounds, no respiratory distress, no accessory muscle use Cardiovascular/Chest: normal peripheral pulses, normal rate, regular rhythm, no gallop/murmur, no JVD Abdomen: normal bowel sounds, non tender, soft, no organomegaly, no mass Extremities: normal range of motion, non-tender, no edema, no cyanosis Skin Exam: normal pigmentation, warm/dry 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 Oct 06, 2019 10:12
--- NOTE | 2019-10-06 10:32 | NUR ---
CASE MANAGEMENT:REVIEW 10/06/19 SI: NSTEMI 97.2 85 24 141/73 96% ON RA IS: LASIX PO QD CARAFATE PO AC+HS NORVASC PO QD COZAAR PO QD LIPITOR PO QHS COREG PO Q12 NEURONTIN PO TID HEPARIN SQ Q12 : TELEMETRY STATUS DCP: MD IS REQUESTING TRANSFER TO HIGHER LEVEL OF CARE FOR CARDIAC CATHETERIZATION
--- NOTE | 2019-10-06 10:45 | NUR ---
TRANSFER/DISCHARGE UPDATE TRANSFER ORDER NOTED FAXED CLINICALS TO [facility]- [employer] ATTEMPTING TO CONTACT A [employer] ENGINE SPECIALIST AT [facility] REGARDING AUTHORIZATION FOR TRANSFER
--- NOTE | 2019-10-06 10:57 | NUR ---
TRANSFER UPDATE SPOKE WITH [employer] SSIS DEVELOPER AT [facility] HE WILL FIND BED AT CONTRACTED FACILITY....EITHER NAVEEN BOLANOS [facility] Addendum: 10/06/19 at 1059 by SHUKRI HERZOG LVN LVN REYNALDO ROLDAN T: [phone]
--- NOTE | 2019-10-06 11:09 | Cardiac Electrophysiology PN ---
Assessment/Plan Assessment/Plan 1. Chest pain in a patient with history of hypertension. The first and last troponins were negative and the 3 middle ones only around 0.1. Currently, she does not have any chest pain or shortness of breath. Stress test showed suspicious for anterior ischemia Will transfer for cardiac cath depending on contracted hospital 2. Hypertension. On Coreg 3.125 bid, Norvasc 10 and Cozaar 100 daily 3. Obesity. 4. Anxiety disorder. SONDRA RN and Dr Rose Subjective Subjective No CP or SOB. Stress test yesterday showed anterior ischemia. Objective Last 24 Hour Vital Signs Date Time Temp Pulse Resp B/P (MAP) Pulse Ox O2 Delivery O2 Flow Rate FiO2 10/06/19 09:21 85 141/73 10/06/19 09:20 85 141/73 10/06/19 09:19 141/73 10/06/19 08:00 97.5 85 20 141/73 (95) 95 10/06/19 03:26 100 10/06/19 02:54 84 24 96 Facial 28 10/06/19 01:46 86 25 97 Facial 28 10/05/19 23:36 80 10/05/19 23:20 90 15 96 Facial 28 10/05/19 21:56 84 18 95 Room Air 21 10/05/19 21:56 95 Room Air 21 10/05/19 21:52 86 18 99 Room Air 21 84 18 95 10/05/19 21:00 73 98/41 10/05/19 21:00 Room Air 10/05/19 20:25 84 10/05/19 16:00 97.2 88 20 135/79 (97) 97 10/05/19 16:00 86 10/05/19 12:00 85 10/05/19 12:00 97.3 91 18 146/70 (95) 96 Intake and Output 10/05/19 10/06/19 19:00 07:00 Intake Total 360 ml Balance 360 ml Intake Oral 360 ml # Voids 4 2 # Bowel Movements 1 2 Laboratory Tests Test 10/06/19 06:00 Sodium Level 144 MMOL/L (136-145) Potassium Level 3.8 MMOL/L (3.5-5.1) Chloride Level 110 MMOL/L (98-107) H Carbon Dioxide Level 25 MMOL/L (21-32) Anion Gap 9 mmol/L (5-15) Blood Urea Nitrogen 20 mg/dL (7-18) H Creatinine 0.8 MG/DL (0.55-1.30) Estimat Glomerular Filtration Rate > 60 mL/min (>60) Glucose Level 103 MG/DL (74-106) Calcium Level 8.9 MG/DL (8.5-10.1) Objective HEAD AND NECK: No JVD. LUNGS: Clear. CARDIOVASCULAR: Regular S1 and S2 with no gallop or murmur. ABDOMEN: Soft. EXTREMITIES: No pitting edema. Lucas Low MD Oct 06, 2019 11:09
[2019-10-06 12:00] VITALS: BP 143/73
--- NOTE | 2019-10-06 13:52 | NUR ---
TRANSFER UPDATE PLAN IS TO TRANSFER PATIENT TO [facility] ACCEPTING PHYSICIAN WILL BE DR MONTGOMERY FAXED CLINICALS TO [facility]...WAITING FOR BED AND TRANSPORTATION INFORMATION
--- NOTE | 2019-10-06 14:15 | General Progress Note ---
Assessment/Plan Problem List: (1) Dyspnea ICD Codes: R06.00 - Dyspnea, unspecified SNOMED: 391462822 Qualifiers: Qualified Codes: R06.00 - Dyspnea, unspecified (2) Chest pain ICD Codes: R07.9 - Chest pain, unspecified SNOMED: 42045369 Qualifiers: Qualified Codes: R07.9 - Chest pain, unspecified (3) Elevated troponin I level ICD Codes: R79.89 - Other specified abnormal findings of blood chemistry SNOMED: 301439291 (4) Obesity (BMI 30.0-34.9) ICD Codes: E66.9 - Obesity, unspecified SNOMED: 012561449578642 (5) HTN (hypertension) ICD Codes: I10 - Essential (primary) hypertension SNOMED: 00122056 (6) SOPHIA (obstructive sleep apnea) ICD Codes: G47.33 - Obstructive sleep apnea (adult) (pediatric) SNOMED: 41235171 (7) HLD (hyperlipidemia) ICD Codes: E78.5 - Hyperlipidemia, unspecified SNOMED: 29642201 (8) GERD (gastroesophageal reflux disease) ICD Codes: K21.9 - Gastro-esophageal reflux disease without esophagitis SNOMED: 298378463 Status: stable Assessment/Plan: This is a 64-year-old female who presented with shortness of breath. In the ER she was found to be hypertensive to systolic blood pressure of 168, elevated troponins up to 0.157 then normal, pro BMP 1231, her EKG showed normal sinus rhythm at 96 bpm, left atrial enlargement, LVH, prolonged QTC, no acute ST-T changes. CXR with mild edema. 1. Hypertensive urgency 2. Elevated troponin levels without chest pain or acute ST-T changes on EKG 3. Hypertension 4. SOPHIA, noncompliant with home CPAP 5. Hyperlipidemia 6. Obesity 7. GERD 8. Medication non compliance Plan telemetry Serial cardiac enzymes and EKGs, last troponin negative stress test positive for anterior wall ischemia PLAN IS TO TRANSFER PATIENT TO [facility]. ACCEPTING PHYSICIAN WILL BE DR MONTGOMERY Continue home atorvastatin, amlodipine, carvedilol. Aspirin, Norvasc, cozar Cardiology consult appreciated 2D echocardiogram to evaluate LV function and look for any wall motion abnormalities---> LVH, diastolic dysfunction, atrial enlargement one dose of lasix 40mg IV, monitor for improvement, started lasix 40 mg daily Blood pressure control Resume CPAP nightly Patient counseled on weight loss. Patient offered counseling services for grief however she refused saying her daughters are her counselors I spent 40 minutes on this encounter. Greater than 50% spent on counseling care coordination. Plan of care discussed with patient, cardiology and RN. Time of note may not reflect time of encounter. Subjective Date patient seen: Oct 06, 2019 ROS Limited/Unobtainable: No Constitutional: Denies: no symptoms, chills, diaphoresis, fever, malaise, weakness, other Cardiovascular: Denies: no symptoms, chest pain, edema, irregular heart rate, lightheadedness, palpitations, syncope, other Respiratory: Reports: shortness of breath Gastrointestinal/Abdominal: Denies: no symptoms, abdomen distended, abdominal pain, black stools, tarry stools, blood in stool, constipated, diarrhea, difficulty swallowing, nausea, poor appetite, poor fluid intake, rectal bleeding , vomiting, other Genitourinary: Denies: no symptoms, burning, discharge, frequency, flank pain, hematuria, incontinence, pain, urgency, other Neurologic/Psychiatric: Denies: no symptoms, anxiety, depressed, emotional problems, headache, numbness, paresthesia, pre-existing deficit, seizure, tingling, tremors, weakness, other Endocrine: Denies: no symptoms, excessive sweating, flushing, intolerance to cold, intolerance to heat, increased hunger, increased thirst, increased urine, unexplained weight gain, unexplained weight loss, other Hematologic/Lymphatic: Denies: no symptoms, anemia, easy bleeding, easy bruising, other Allergies: Coded Allergies: PANTOPRAZOLE (Verified Allergy, Unknown, 10/04/19) Subjective feels better today. nuclear stress test positive for anterior wall ischemia. i spoke to Naun Sauceda MD reg the need for transfer for a cardiac cath. Objective Last 24 Hour Vital Signs Date Time Temp Pulse Resp B/P (MAP) Pulse Ox O2 Delivery O2 Flow Rate FiO2 10/06/19 09:21 85 141/73 10/06/19 09:20 85 141/73 10/06/19 09:19 141/73 10/06/19 08:00 97.5 85 20 141/73 (95) 95 10/06/19 03:26 100 10/06/19 02:54 84 24 96 Facial 28 10/06/19 01:46 86 25 97 Facial 28 10/05/19 23:36 80 10/05/19 23:20 90 15 96 Facial 28 10/05/19 21:56 84 18 95 Room Air 21 10/05/19 21:56 95 Room Air 21 10/05/19 21:52 86 18 99 Room Air 21 84 18 95 10/05/19 21:00 73 98/41 10/05/19 21:00 Room Air 10/05/19 20:25 84 10/05/19 16:00 97.2 88 20 135/79 (97) 97 10/05/19 16:00 86 Intake and Output 10/05/19 10/06/19 19:00 07:00 Intake Total 360 ml Balance 360 ml Intake Oral 360 ml # Voids 4 2 # Bowel Movements 1 2 Laboratory Tests 10/06/19 06:00: Sodium Level 144, Potassium Level 3.8, Chloride Level 110H, Carbon Dioxide Level 25, Anion Gap 9, Blood Urea Nitrogen 20H, Creatinine 0.8, Estimat Glomerular Filtration Rate > 60, Glucose Level 103, Calcium Level 8.9 Height (Feet): 5 Height (Inches): 11.00 Weight (Pounds): 246 Objective General Appearance: WD/WN, no apparent distress, obese Lines, tubes and drains: peripheral HEENT: normocephalic, atraumatic, anicteric, mucous membranes moist, PERRL, EOMI Neck: non-tender, supple Respiratory/Chest: lungs clear, normal breath sounds, no respiratory distress, no accessory muscle use Cardiovascular/Chest: normal peripheral pulses, normal rate, regular rhythm, no gallop/murmur, no JVD Abdomen: normal bowel sounds, non tender, soft, no organomegaly, no mass Extremities: normal range of motion, non-tender, no edema, no cyanosis Skin Exam: normal pigmentation, warm/dry Neurologic: bark fitter II-XII grossly normal, no motor/sensory deficits, alert, oriented x 3, responsive, normal mood/affect Musculoskeletal: normal muscle bulk Darien Rose M.D. Oct 06, 2019 14:15
--- NOTE | 2019-10-06 16:55 | NUR ---
TRANSFER UPDATE SPOKE WITH [employer] THEY WILL CALL NURSES STATION IF BED BECOMES AVAILABLE LATER THIS EVENING HOWEVER, TRANSFER MAY MIGUEL OCCUR UNTIL TOMORROW
[2019-10-06 18:00] VITALS: BP 134/81
--- NOTE | 2019-10-06 18:00 | NUR ---
NURSE NOTES: Transfer to [facility] updates given to pt.
--- NOTE | 2019-10-06 19:21 | NUR ---
HAND-OFF: Report given to MARIELLA Beasley. Pt. in stable condition. Plan of care endorsed.
[2019-10-06 20:30] VITALS: BP 116/98
[2019-10-07] VITALS: BP 105/54
[2019-10-07] MEDS: Albuterol/Ipratropium 3ml neb HHN PRN (04:12)
[2019-10-07] MEDS: Sucralfate 1gm tab ORAL SCH ×4 (06:34→20:13)
--- NOTE | 2019-10-07 07:28 | NUR ---
HAND-OFF: Report given to MARIELLA Maciel, patient in stable condition, plan of care endorsed.
--- NOTE | 2019-10-07 07:30 | NUR ---
NURSE NOTES: Received report from Kim/RN, Patient is awake, eating breakfast on bed. On room air, No acute distress/SOB noted. . Able to make needs known, Denies pain at this time.IV on left AC and right AC Patent, saline locked. Bed in low position and locked, Bed alarm is on, side-rails up x2. Call light within reach. Encouraged to use call light when needed. Will continue plan of care.
[2019-10-07 08:00] VITALS: BP 124/74
--- NOTE | 2019-10-07 08:06 | General Progress Note ---
Assessment/Plan Problem List: (1) Dyspnea ICD Codes: R06.00 - Dyspnea, unspecified SNOMED: 188109245 Qualifiers: Qualified Codes: R06.00 - Dyspnea, unspecified (2) Chest pain ICD Codes: R07.9 - Chest pain, unspecified SNOMED: 98188450 Qualifiers: Qualified Codes: R07.9 - Chest pain, unspecified (3) Elevated troponin I level ICD Codes: R79.89 - Other specified abnormal findings of blood chemistry SNOMED: 029459793 (4) Obesity (BMI 30.0-34.9) ICD Codes: E66.9 - Obesity, unspecified SNOMED: 853843067758749 (5) HTN (hypertension) ICD Codes: I10 - Essential (primary) hypertension SNOMED: 87463446 (6) SOPHIA (obstructive sleep apnea) ICD Codes: G47.33 - Obstructive sleep apnea (adult) (pediatric) SNOMED: 13318174 (7) HLD (hyperlipidemia) ICD Codes: E78.5 - Hyperlipidemia, unspecified SNOMED: 49763760 (8) GERD (gastroesophageal reflux disease) ICD Codes: K21.9 - Gastro-esophageal reflux disease without esophagitis SNOMED: 163975051 Status: stable Assessment/Plan: This is a 64-year-old female who presented with shortness of breath. In the ER she was found to be hypertensive to systolic blood pressure of 168, elevated troponins up to 0.157 then normal, pro BMP 1231, her EKG showed normal sinus rhythm at 96 bpm, left atrial enlargement, LVH, prolonged QTC, no acute ST-T changes. CXR with mild edema. 1. Hypertensive urgency 2. Elevated troponin levels without chest pain or acute ST-T changes on EKG 3. Hypertension 4. SOPHIA, noncompliant with home CPAP 5. Hyperlipidemia 6. Obesity 7. GERD 8. Medication non compliance Plan telemetry Serial cardiac enzymes and EKGs, last troponin negative stress test positive for anterior wall ischemia PLAN IS TO TRANSFER PATIENT TO [facility]. ACCEPTING PHYSICIAN WILL BE DR MONTGOMERY Continue home atorvastatin, amlodipine, carvedilol. Aspirin, Norvasc, cozar Cardiology consult appreciated 2D echocardiogram to evaluate LV function and look for any wall motion abnormalities---> LVH, diastolic dysfunction, atrial enlargement one dose of lasix 40mg IV, monitor for improvement, started lasix 40 mg daily Blood pressure control Resume CPAP nightly Patient counseled on weight loss. Patient offered counseling services for grief however she refused saying her daughters are her counselors I spent 40 minutes on this encounter. Greater than 50% spent on counseling care coordination. Plan of care discussed with patient, cardiology and RN. Time of note may not reflect time of encounter. Subjective Date patient seen: Oct 07, 2019 ROS Limited/Unobtainable: No Constitutional: Denies: no symptoms, chills, diaphoresis, fever, malaise, weakness, other HEENT: Denies: no symptoms, eye pain, blurred vision, tearing, double vision, ear pain, ear discharge, nose pain, nose congestion, throat pain, throat swelling, mouth pain, mouth swelling, other Cardiovascular: Denies: no symptoms, chest pain, edema, irregular heart rate, lightheadedness, palpitations, syncope, other Respiratory: Denies: no symptoms, cough, orthopnea, shortness of breath, SOB with excertion, SOB at rest, sputum, stridor, wheezing, other Gastrointestinal/Abdominal: Denies: no symptoms, abdomen distended, abdominal pain, black stools, tarry stools, blood in stool, constipated, diarrhea, difficulty swallowing, nausea, poor appetite, poor fluid intake, rectal bleeding , vomiting, other Genitourinary: Denies: no symptoms, burning, discharge, frequency, flank pain, hematuria, incontinence, pain, urgency, other Neurologic/Psychiatric: Denies: no symptoms, anxiety, depressed, emotional problems, headache, numbness, paresthesia, pre-existing deficit, seizure, tingling, tremors, weakness, other Endocrine: Denies: no symptoms, excessive sweating, flushing, intolerance to cold, intolerance to heat, increased hunger, increased thirst, increased urine, unexplained weight gain, unexplained weight loss, other Hematologic/Lymphatic: Denies: no symptoms, anemia, easy bleeding, easy bruising, other Allergies: Coded Allergies: PANTOPRAZOLE (Verified Allergy, Unknown, 10/04/19) Subjective feels better today. nuclear stress test positive for anterior wall ischemia. waiting to transfer for cath. accepted to [facility]. waiting for a bed. no acute events overnight Objective Last 24 Hour Vital Signs Date Time Temp Pulse Resp B/P (MAP) Pulse Ox O2 Delivery O2 Flow Rate FiO2 10/07/19 04:12 72 18 99 Room Air 21 67 20 97 10/07/19 04:00 89 10/07/19 03:15 85 15 97 Facial 28 10/07/19 00:00 98.7 72 18 105/54 (71) 95 10/07/19 00:00 87 10/06/19 23:50 89 26 95 Facial 28 10/06/19 21:00 Room Air 10/06/19 20:33 87 116/98 10/06/19 20:30 98.1 87 18 116/98 (104) 95 10/06/19 20:00 73 10/06/19 19:39 95 Nasal Cannula 2.0 28 10/06/19 19:38 83 18 95 Nasal Cannula 2.0 28 10/06/19 18:00 97.9 81 20 134/81 (98) 94 10/06/19 16:00 92 10/06/19 12:00 66 10/06/19 12:00 98.1 92 20 143/73 (96) 96 10/06/19 09:21 85 141/73 10/06/19 09:20 85 141/73 10/06/19 09:19 141/73 10/06/19 09:00 Room Air 10/06/19 08:30 88 18 95 Room Air 21 10/06/19 08:30 95 Room Air 21 Intake and Output 10/06/19 10/07/19 19:00 07:00 Intake Total 600 ml 300 ml Balance 600 ml 300 ml Intake Oral 600 ml 300 ml # Voids 4 2 # Bowel Movements 1 1 Height (Feet): 5 Height (Inches): 11.00 Weight (Pounds): 246 Objective General Appearance: WD/WN, no apparent distress, obese Lines, tubes and drains: peripheral HEENT: normocephalic, atraumatic, anicteric, mucous membranes moist, PERRL, EOMI Neck: non-tender, supple Respiratory/Chest: lungs clear, normal breath sounds, no respiratory distress, no accessory muscle use Cardiovascular/Chest: normal peripheral pulses, normal rate, regular rhythm, no gallop/murmur, no JVD Abdomen: normal bowel sounds, non tender, soft, no organomegaly, no mass Extremities: normal range of motion, non-tender, no edema, no cyanosis Skin Exam: normal pigmentation, warm/dry Neurologic: oil well pumper II-XII grossly normal, no motor/sensory deficits, alert, oriented x 3, responsive, normal mood/affect Musculoskeletal: normal muscle bulk Darien Rose M.D. Oct 07, 2019 08:06
[2019-10-07] MEDS: Heparin 5000 units/ml inj SUBQ SCH ×2 (09:06→20:19)
[2019-10-07] MEDS: Furosemide 40mg tab ORAL SCH (09:06)
[2019-10-07] MEDS: Losartan 50mg tab ORAL SCH (09:07)
--- NOTE | 2019-10-07 10:18 | Cardiac Electrophysiology PN ---
Assessment/Plan Assessment/Plan 1. Chest pain in a patient with history of hypertension. The first and last troponins were negative and the 3 middle ones only around 0.1. Currently, she does not have any chest pain or shortness of breath. Stress test showed suspicious for anterior ischemia Awaiting transfer to [facility] for cardiac cath as the contracted hospital 2. Hypertension. On Coreg 3.125 bid, Norvasc 10 and Cozaar 100 daily 3. Obesity. 4. Anxiety disorder. SONDRA RN Subjective Subjective No CP or SOB. Stress test showed anterior ischemia.Awaiting transfer for cardiac cath to contracted facility Objective Last 24 Hour Vital Signs Date Time Temp Pulse Resp B/P (MAP) Pulse Ox O2 Delivery O2 Flow Rate FiO2 10/07/19 09:07 124/74 10/07/19 09:06 78 124/74 10/07/19 09:06 78 124/74 10/07/19 08:00 99.0 78 18 124/74 (91) 96 10/07/19 04:12 72 18 99 Room Air 21 67 20 97 10/07/19 04:00 89 10/07/19 03:15 85 15 97 Facial 28 10/07/19 00:00 98.7 72 18 105/54 (71) 95 10/07/19 00:00 87 10/06/19 23:50 89 26 95 Facial 28 10/06/19 21:00 Room Air 10/06/19 20:33 87 116/98 10/06/19 20:30 98.1 87 18 116/98 (104) 95 10/06/19 20:00 73 10/06/19 19:39 95 Nasal Cannula 2.0 28 10/06/19 19:38 83 18 95 Nasal Cannula 2.0 28 10/06/19 18:00 97.9 81 20 134/81 (98) 94 10/06/19 16:00 92 10/06/19 12:00 66 10/06/19 12:00 98.1 92 20 143/73 (96) 96 Intake and Output 10/06/19 10/07/19 19:00 07:00 Intake Total 600 ml 420 ml Balance 600 ml 420 ml Intake Oral 600 ml 420 ml # Voids 4 2 # Bowel Movements 1 1 Objective HEAD AND NECK: No JVD. LUNGS: Clear. CARDIOVASCULAR: Regular S1 and S2 with no gallop or murmur. ABDOMEN: Soft. EXTREMITIES: No pitting edema. Lucas Low MD Oct 07, 2019 10:18
[2019-10-07 12:00] VITALS: BP 131/76
--- NOTE | 2019-10-07 12:02 | NUR ---
TRANSFER UPDATE STILL WAITING FOR AVAILABLE BED AT [facility] LEFT VOICEMAIL MESSAGE FOR [employer], YULI REGARDING TRANSFER
--- NOTE | 2019-10-07 12:04 | NUR ---
CASE MANAGEMENT:REVIEW 10/07/19 SI: NSTEMI STRESS TEST SUSPICIOUS FOR ANTERIOR ISCHEMIA 99.0 78 18 124/74 96% ON RA IS: LASIX PO QD CARAFATE PO AC+HS NORVASC PO QD COZAAR PO QD LIPITOR PO QHS COREG PO Q12 NEURONTIN PO TID HEPARIN SQ Q12 : TELEMETRY STATUS DCP: MD IS REQUESTING TRANSFER TO HIGHER LEVEL OF CARE FOR CARDIAC CATHETERIZATION WAITING FOR BED TO BECOME AVAILABLE AT "[facility]"
--- NOTE | 2019-10-07 15:39 | NUR ---
DISCHARGE PLANNING SPOKE WITH [employer], TACHO T: [phone] ACCEPTING HOSPITAL HAS BEEN WAITING FOR A HARD [employer] AUTHORIZATION FROM [employer] HAS BEEN FAXED OVER AND RECEIVED WE ARE WAITING FOR THE ASSIGNED ROOM NUMBER FOR [facility] [place] AT [facility] CONTRACTED TRANSPORTATION IS "[facility]" T: [phone] PLACED "[facility]" ON WILL CALL FOR [facility] AUTH NUMBER [id number] [facility] WAS ARRANGED WITH ...TRIP NUMBER IS [id number] ONCE WE HAVE A ROOM NUMBER NURSING NEEDS TO CALL [facility] AND ACTIVATE TRANSPORT
[2019-10-07 16:00] VITALS: BP 103/58
--- NOTE | 2019-10-07 16:37 | NUR ---
*-* INSURANCE *-* ALL CLINICALS AND REVIEWS HAVE BEEN FAXED TO: [facility] [phone] JODY Najera/LAUREN, SHE PROVIDED TRACKING#[id number] NO [facility]# FAX#[phone] REVIEWS/CLINICALS
--- NOTE | 2019-10-07 19:35 | NUR ---
HAND-OFF: Report given to Naomy/RN, Patient is in stable condition, Endorsed plan of care.
[2019-10-07 20:00] VITALS: BP 159/100
--- NOTE | 2019-10-07 20:03 | NUR ---
NURSE NOTES: Received pt and report from MARIELLA Maciel. Observed pt resting in bed with both eyes open and watching television. Pt is A/Ox4. quality assurance monitor body is in placed; pt is NSR. IV site intact, asymptomatic, and patent. Bed is in the lowest position and locked. Call light and bedside table is within reach. No signs/symptoms of acute distress noted at this time. Will continue plan of care.
[2019-10-08] VITALS: BP 115/55
[2019-10-08] MEDS: Albuterol/Ipratropium 3ml neb HHN PRN ×2 (01:10→22:22)
[2019-10-08 04:00] VITALS: BP 149/83
[2019-10-08] MEDS: Sucralfate 1gm tab ORAL SCH ×4 (06:06→20:29)
--- NOTE | 2019-10-08 07:29 | NUR ---
HAND-OFF: Report given to MARIELLA Conteh. Plan of care endorsed.
--- NOTE | 2019-10-08 07:55 | NUR ---
NURSE NOTES: Received patient sitting in bed. Pt is A/O x4. Pt reported frequent BM, without s/sx of diarrhea. Breathing normal and unlabored. Pt complains of mild pain on bilateral legs. Bed low and locked. Call light and bedside table within reach. Will continue plan of care.
[2019-10-08 08:00] VITALS: BP 127/75
--- NOTE | 2019-10-08 08:46 | General Progress Note ---
Assessment/Plan Problem List: (1) Dyspnea ICD Codes: R06.00 - Dyspnea, unspecified SNOMED: 504129358 Qualifiers: Qualified Codes: R06.00 - Dyspnea, unspecified (2) Chest pain ICD Codes: R07.9 - Chest pain, unspecified SNOMED: 51449418 Qualifiers: Qualified Codes: R07.9 - Chest pain, unspecified (3) Elevated troponin I level ICD Codes: R79.89 - Other specified abnormal findings of blood chemistry SNOMED: 642943211 (4) Obesity (BMI 30.0-34.9) ICD Codes: E66.9 - Obesity, unspecified SNOMED: 421430300994735 (5) HTN (hypertension) ICD Codes: I10 - Essential (primary) hypertension SNOMED: 05200582 (6) SOPHIA (obstructive sleep apnea) ICD Codes: G47.33 - Obstructive sleep apnea (adult) (pediatric) SNOMED: 60991059 (7) HLD (hyperlipidemia) ICD Codes: E78.5 - Hyperlipidemia, unspecified SNOMED: 25902707 (8) GERD (gastroesophageal reflux disease) ICD Codes: K21.9 - Gastro-esophageal reflux disease without esophagitis SNOMED: 874456388 Status: stable Assessment/Plan: This is a 64-year-old female who presented with shortness of breath. In the ER she was found to be hypertensive to systolic blood pressure of 168, elevated troponins up to 0.157 then normal, pro BMP 1231, her EKG showed normal sinus rhythm at 96 bpm, left atrial enlargement, LVH, prolonged QTC, no acute ST-T changes. CXR with mild edema. 1. Hypertensive urgency 2. Elevated troponin levels without chest pain or acute ST-T changes on EKG 3. Hypertension 4. SOPHIA, noncompliant with home CPAP 5. Hyperlipidemia 6. Obesity 7. GERD 8. Medication non compliance Plan telemetry Serial cardiac enzymes and EKGs, last troponin negative stress test positive for anterior wall ischemia PLAN IS TO TRANSFER PATIENT TO [facility]. ACCEPTING PHYSICIAN WILL BE DR MONTGOMERY Continue home atorvastatin, amlodipine, carvedilol. Aspirin, Norvasc, cozar Cardiology consult appreciated 2D echocardiogram to evaluate LV function and look for any wall motion abnormalities---> LVH, diastolic dysfunction, atrial enlargement one dose of lasix 40mg IV, monitor for improvement, started lasix 40 mg daily Blood pressure control Resume CPAP nightly Patient counseled on weight loss. Patient offered counseling services for grief however she refused saying her daughters are her counselors I spent 40 minutes on this encounter. Greater than 50% spent on counseling care coordination. Plan of care discussed with patient, cardiology and RN. Time of note may not reflect time of encounter. Subjective Date patient seen: Oct 08, 2019 ROS Limited/Unobtainable: No Constitutional: Denies: no symptoms, chills, diaphoresis, fever, malaise, weakness, other HEENT: Denies: no symptoms, eye pain, blurred vision, tearing, double vision, ear pain, ear discharge, nose pain, nose congestion, throat pain, throat swelling, mouth pain, mouth swelling, other Cardiovascular: Denies: no symptoms, chest pain, edema, irregular heart rate, lightheadedness, palpitations, syncope, other Respiratory: Denies: no symptoms, cough, orthopnea, shortness of breath, SOB with excertion, SOB at rest, sputum, stridor, wheezing, other Gastrointestinal/Abdominal: Denies: no symptoms, abdomen distended, abdominal pain, black stools, tarry stools, blood in stool, constipated, diarrhea, difficulty swallowing, nausea, poor appetite, poor fluid intake, rectal bleeding , vomiting, other Genitourinary: Denies: no symptoms, burning, discharge, frequency, flank pain, hematuria, incontinence, pain, urgency, other Neurologic/Psychiatric: Denies: no symptoms, anxiety, depressed, emotional problems, headache, numbness, paresthesia, pre-existing deficit, seizure, tingling, tremors, weakness, other Endocrine: Denies: no symptoms, excessive sweating, flushing, intolerance to cold, intolerance to heat, increased hunger, increased thirst, increased urine, unexplained weight gain, unexplained weight loss, other Hematologic/Lymphatic: Denies: no symptoms, anemia, easy bleeding, easy bruising, other Allergies: Coded Allergies: PANTOPRAZOLE (Verified Allergy, Unknown, 10/04/19) Subjective following up for chest pain and nuclear stress test positive for anterior wall ischemia. waiting to transfer for cath. accepted to [facility]. waiting for a bed. no acute events overnight Objective Last 24 Hour Vital Signs Date Time Temp Pulse Resp B/P (MAP) Pulse Ox O2 Delivery O2 Flow Rate FiO2 10/08/19 08:31 Room Air 10/08/19 08:00 97.3 88 18 127/75 (92) 96 10/08/19 04:00 79 10/08/19 04:00 97.8 73 18 149/83 (105) 96 10/08/19 03:00 81 15 96 Facial 28 10/08/19 01:33 79 14 99 Facial 28 10/08/19 01:11 72 18 99 Room Air 21 73 18 97 10/08/19 00:00 94 10/08/19 00:00 97.7 72 17 115/55 (75) 94 10/07/19 21:00 Room Air 10/07/19 20:17 79 159/100 10/07/19 20:12 96 Room Air 21 10/07/19 20:12 81 18 96 Room Air 2.0 21 10/07/19 20:00 97.5 76 19 159/100 (119) 96 10/07/19 20:00 78 10/07/19 16:00 97.9 80 20 103/58 (73) 91 10/07/19 16:00 91 10/07/19 12:00 76 10/07/19 12:00 97.3 77 19 131/76 (94) 95 10/07/19 09:07 124/74 10/07/19 09:06 78 124/74 10/07/19 09:06 78 124/74 10/07/19 09:00 Room Air Intake and Output 10/07/19 10/08/19 19:00 07:00 Intake Total 280 ml Output Total 760 ml Balance -480 ml Intake Oral 280 ml Output Urine Total 760 ml # Voids 3 5 # Bowel Movements 2 Height (Feet): 5 Height (Inches): 11.00 Weight (Pounds): 246 Objective General Appearance: WD/WN, no apparent distress, obese Lines, tubes and drains: peripheral HEENT: normocephalic, atraumatic, anicteric, mucous membranes moist, PERRL, EOMI Neck: non-tender, supple Respiratory/Chest: lungs clear, normal breath sounds, no respiratory distress, no accessory muscle use Cardiovascular/Chest: normal peripheral pulses, normal rate, regular rhythm, no gallop/murmur, no JVD Abdomen: normal bowel sounds, non tender, soft, no organomegaly, no mass Extremities: normal range of motion, non-tender, no edema, no cyanosis Skin Exam: normal pigmentation, warm/dry 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 Oct 08, 2019 08:46
[2019-10-08] MEDS: Furosemide 40mg tab ORAL SCH (09:14)
[2019-10-08] MEDS: Losartan 50mg tab ORAL SCH (09:15)
[2019-10-08] MEDS: Heparin 5000 units/ml inj SUBQ SCH ×2 (09:18→20:30)
--- NOTE | 2019-10-08 11:18 | Cardiac Electrophysiology PN ---
Assessment/Plan Assessment/Plan 1. Chest pain in a patient with history of hypertension. The first and last troponins were negative and the 3 middle ones only around 0.1. Currently, she does not have any chest pain or shortness of breath. Stress test showed suspicious for anterior ischemia Awaiting transfer to [facility] for cardiac cath as the contracted hospital 2. Hypertension. On Coreg 3.125 bid, Norvasc 10 and Cozaar 100 daily 3. Obesity. 4. Anxiety disorder. DW RN Subjective Subjective No CP or SOB. Stress test showed possible anterior ischemia. Awaiting transfer for cardiac cath to contracted facility Objective Last 24 Hour Vital Signs Date Time Temp Pulse Resp B/P (MAP) Pulse Ox O2 Delivery O2 Flow Rate FiO2 10/08/19 09:15 127/75 10/08/19 09:15 88 127/75 10/08/19 09:15 88 127/75 10/08/19 08:31 Room Air 10/08/19 08:00 97.3 88 18 127/75 (92) 96 10/08/19 04:00 79 10/08/19 04:00 97.8 73 18 149/83 (105) 96 10/08/19 03:00 81 15 96 Facial 28 10/08/19 01:33 79 14 99 Facial 28 10/08/19 01:11 72 18 99 Room Air 21 73 18 97 10/08/19 00:00 94 10/08/19 00:00 97.7 72 17 115/55 (75) 94 10/07/19 21:00 Room Air 10/07/19 20:17 79 159/100 10/07/19 20:12 96 Room Air 21 10/07/19 20:12 81 18 96 Room Air 2.0 21 10/07/19 20:00 97.5 76 19 159/100 (119) 96 10/07/19 20:00 78 10/07/19 16:00 97.9 80 20 103/58 (73) 91 10/07/19 16:00 91 10/07/19 12:00 76 10/07/19 12:00 97.3 77 19 131/76 (94) 95 Intake and Output 10/07/19 10/08/19 19:00 07:00 Intake Total 280 ml 140 ml Output Total 760 ml Balance -480 ml 140 ml Intake Oral 280 ml 140 ml Output Urine Total 760 ml # Voids 3 5 # Bowel Movements 2 Objective HEAD AND NECK: No JVD. LUNGS: Clear. CARDIOVASCULAR: Regular S1 and S2 with no gallop or murmur. ABDOMEN: Soft. EXTREMITIES: No pitting edema. Lucas Low MD Oct 08, 2019 11:18
[2019-10-08 11:59] VITALS: BP 106/69
--- NOTE | 2019-10-08 15:09 | NUR ---
NURSE NOTES: Melanie received form Carl. Patient stable with no complaints at this time. No s/sx of distress. RR even and unlabored. Currently of NC and on RA. Pt sitting on walker. Side rails upx2, call light within reach, bed low and locked. Will continue to monitor.
--- NOTE | 2019-10-08 15:11 | NUR ---
HAND-OFF: Report given to MARIELLA Booth. Patient in stable condition.
--- NOTE | 2019-10-08 15:24 | NUR ---
*-* INSURANCE *-* ALL CLINICALS AND REVIEWS HAVE BEEN FAXED TO: [facility] [phone] JODY Najera/LAUREN, SHE PROVIDED TRACKING#[id number] NO [facility]# FAX#[phone] REVIEWS/CLINICALS
[2019-10-08 16:00] VITALS: BP 139/84
--- NOTE | 2019-10-08 16:18 | NUR ---
CASE MANAGEMENT:REVIEW 10/08/19 SI: NSTEMI STRESS TEST SUSPICIOUS FOR ANTERIOR ISCHEMIA 97.1 86 18 106/69 98% on ra IS: LASIX PO QD CARAFATE PO AC+HS NORVASC PO QD COZAAR PO QD LIPITOR PO QHS COREG PO Q12 NEURONTIN PO TID HEPARIN SQ Q12 : TELEMETRY STATUS DCP: MD IS REQUESTING TRANSFER TO HIGHER LEVEL OF CARE FOR CARDIAC CATHETERIZATION WAITING FOR BED TO BECOME AVAILABLE
--- NOTE | 2019-10-08 16:20 | NUR ---
TRANSFER UPDATE [facility] IS STILL SEEKING AVAILABLE BED AT ONE OF THEIR CONTRACTED FACILITIES FOR HEART CATH
--- NOTE | 2019-10-08 19:43 | NUR ---
HAND-OFF: Report given to Francie RN. Patient stable. Plan of care endorsed.
--- NOTE | 2019-10-08 19:56 | NUR ---
NURSE NOTES: Received pt and report from MARIELLA Booth. Pt is A/Ox4. ekg monitor is in placed; pt is NSR. Pt is awaiting for bed at [facility] for cardiac cath. IV site intact, asymptomatic, and patent. Bed is in the lowest position and locked. Call light and bedside table is within reach. No sign/symptoms of acute distress noted at this time. Will continue plan of care.
[2019-10-08 20:00] VITALS: BP 149/92
[2019-10-09] VITALS: BP 155/91
[2019-10-09 04:00] VITALS: BP 123/65
[2019-10-09] MEDS: Sucralfate 1gm tab ORAL SCH ×4 (05:56→21:35)
--- NOTE | 2019-10-09 08:08 | NUR ---
HAND-OFF: Report given to MARIELLA Larsen. Plan of care endorsed.
--- NOTE | 2019-10-09 08:17 | NUR ---
NURSE NOTES: pt sitting at edge of the bed having breakfast. 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 Call light is within reach. Bed side commode right by bedside. Bed is locked and in lowest position. Will continue to monitor pt and lab values.
[2019-10-09 08:30] VITALS: BP 118/70
[2019-10-09 08:36] LABS: HEMATOCRIT 44.3 % (37.0-47.0); HEMOGLOBIN 14.2 G/DL (12.0-16.0); MEAN CORPUSCULAR VOLUME 92 FL (80-99); PLATELET COUNT 307 K/UL (150-450); RED BLOOD COUNT 4.82 M/UL (4.20-5.40); RED CELL DISTRIBUTION WIDTH 12.2 % (11.6-14.8); WHITE BLOOD COUNT 2.9 K/UL (4.8-10.8)
[2019-10-09 09:07] LABS: ANION GAP 6 mmol/L (5-15); BLOOD UREA NITROGEN 13 mg/dL (7-18); CALCIUM 8.7 MG/DL (8.5-10.1); CARBON DIOXIDE 31 MMOL/L (21-32); CHLORIDE 103 MMOL/L (98-107); CREATININE 0.9 MG/DL (0.55-1.30); POTASSIUM 3.8 MMOL/L (3.5-5.1); SODIUM 140 MMOL/L (136-145)
[2019-10-09] MEDS: Albuterol/Ipratropium 3ml neb HHN PRN ×2 (09:35→15:04)
[2019-10-09] MEDS: Furosemide 40mg tab ORAL SCH (10:01)
[2019-10-09] MEDS: Losartan 50mg tab ORAL SCH (10:01)
[2019-10-09] MEDS: Heparin 5000 units/ml inj SUBQ SCH ×2 (10:04→21:39)
[2019-10-09 12:00] VITALS: BP 112/61
--- NOTE | 2019-10-09 13:12 | General Progress Note ---
Assessment/Plan Status: stable Assessment/Plan: 64-year-old female who presented with shortness of breath. In the ER she was found to be hypertensive to systolic blood pressure of 168, elevated troponins up to 0.157 then normal, pro BMP 1231, her EKG showed normal sinus rhythm at 96 bpm, left atrial enlargement, LVH, prolonged QTC, no acute ST-T changes. CXR with mild edema. 1. Hypertensive urgency 2. Elevated troponin levels without chest pain or acute ST-T changes on EKG 3. Hypertension 4. SOPHIA, noncompliant with home CPAP 5. Hyperlipidemia 6. Morbid Obesity 7. GERD 8. Medication non compliance 9. Acute on chronic diastolic CHF Plan continue telemetry Serial cardiac enzymes and EKGs, last troponin negative stress test positive for anterior wall ischemia PLAN IS TO TRANSFER PATIENT TO [facility]. ACCEPTING PHYSICIAN WILL BE DR MONTGOMERY Continue home atorvastatin, amlodipine, carvedilol. Aspirin, Norvasc, cozar Cardiology following 2D echocardiogram to evaluate LV function and look for any wall motion abnormalities---> LVH, diastolic dysfunction, atrial enlargement one dose of lasix 40mg IV, monitor for improvement, cont lasix 40 mg daily Blood pressure control Nocturnal CPAP for SOPHIA Patient counseled on weight loss. Patient offered counseling services for grief however she refused saying her daughters are her counselors I spent 35 minutes on this encounter. Greater than 50% spent on counseling care coordination. I spent an additional 35 minutes on review of medical records including prior hospital records, consult notes, progress notes, procedures, imaging, labs, hemodynamics, and other clinical documentation. Subjective Date patient seen: Oct 09, 2019 Time patient seen: 13:00 Constitutional: Denies: fever Cardiovascular: Denies: chest pain Respiratory: Denies: cough Gastrointestinal/Abdominal: Denies: abdominal pain Genitourinary: Denies: burning Neurologic/Psychiatric: Denies: anxiety Endocrine: Denies: excessive sweating Hematologic/Lymphatic: Denies: easy bleeding Allergies: Coded Allergies: PANTOPRAZOLE (Verified Allergy, Unknown, 10/04/19) Subjective Follow up for medical management, NSTEMI, pending transfer to OSH for [facility]. Denies any chest pain or dyspnea. Reports insomnia. Objective Last 24 Hour Vital Signs Date Time Temp Pulse Resp B/P (MAP) Pulse Ox O2 Delivery O2 Flow Rate FiO2 10/09/19 10:01 118/70 10/09/19 10:01 79 118/70 10/09/19 10:01 79 118/70 10/09/19 09:45 79 20 98 Nasal Cannula 2.0 28 73 21 96 10/09/19 08:47 Room Air 10/09/19 08:30 97.3 68 18 118/70 (86) 99 10/09/19 08:27 97 Nasal Cannula 2.0 28 10/09/19 08:27 79 20 97 Nasal Cannula 2.0 28 10/09/19 04:00 81 10/09/19 04:00 98.2 76 19 123/65 (84) 98 10/09/19 01:12 85 97 10/09/19 00:00 98.1 64 20 155/91 (112) 97 10/09/19 00:00 75 10/08/19 23:25 84 22 96 Facial 28 10/08/19 22:23 87 18 98 Room Air 21 85 18 96 10/08/19 21:14 107 149/92 10/08/19 21:00 Room Air 10/08/19 20:00 98.1 70 19 149/92 (111) 96 10/08/19 20:00 91 10/08/19 19:21 92 20 97 Room Air 21 10/08/19 19:21 97 Room Air 21 10/08/19 16:00 98.6 78 19 139/84 (102) 91 10/08/19 16:00 96 10/08/19 14:15 90 19 98 Room Air 21 10/08/19 14:13 98 Room Air 21 Intake and Output 10/08/19 10/09/19 19:00 07:00 Intake Total 380 ml 200 ml Balance 380 ml 200 ml Intake Oral 380 ml Other 200 ml # Voids 7 4 # Bowel Movements 3 2 Laboratory Tests 10/09/19 07:55: White Blood Count 2.9L, Red Blood Count 4.82, Hemoglobin 14.2, Hematocrit 44.3, Mean Corpuscular Volume 92, Mean Corpuscular Hemoglobin 29.5, Mean Corpuscular Hemoglobin Concent 32.1, Red Cell Distribution Width 12.2, Platelet Count 307, Mean Platelet Volume 6.2L, Neutrophils (%) (Auto) , Lymphocytes (%) (Auto) , Monocytes (%) (Auto) , Eosinophils (%) (Auto) , Basophils (%) (Auto) , Differential Total Cells Counted 100, Neutrophils % (Manual) 53, Lymphocytes % ( Manual) 20, Monocytes % (Manual) 23H, Eosinophils % (Manual) 2, Basophils % ( Manual) 2, Band Neutrophils 0, Platelet Estimate Adequate, Platelet Morphology Normal, Sodium Level 140, Potassium Level 3.8, Chloride Level 103, Carbon Dioxide Level 31, Anion Gap 6, Blood Urea Nitrogen 13, Creatinine 0.9, Estimat Glomerular Filtration Rate > 60, Glucose Level 106, Calcium Level 8.7, Pro-B- Type Natriuretic Peptide 394H Height (Feet): 5 Height (Inches): 11.00 Weight (Pounds): 246 General Appearance: no apparent distress, alert Neck: normal alignment Cardiovascular: normal rate, regular rhythm Respiratory/Chest: lungs clear, normal breath sounds, no respiratory distress Abdomen: non tender, soft 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
--- NOTE | 2019-10-09 14:50 | Cardiac Electrophysiology PN ---
Assessment/Plan Assessment/Plan 1. Chest pain and troponin leak in a patient with history of hypertension and stress test that showed anterior ischemia Awaiting transfer to [facility] for cardiac cath as the contracted hospital 2. Hypertension. On Coreg 3.125 bid, Norvasc 10 and Cozaar 100 daily 3. Obesity. 4. Anxiety disorder. SONDRA RN Subjective Subjective No CP or SOB. Stress test showed possible anterior ischemia. Awaiting transfer for cardiac cath Objective Last 24 Hour Vital Signs Date Time Temp Pulse Resp B/P (MAP) Pulse Ox O2 Delivery O2 Flow Rate FiO2 10/09/19 12:00 76 10/09/19 10:01 118/70 10/09/19 10:01 79 118/70 10/09/19 10:01 79 118/70 10/09/19 09:45 79 20 98 Nasal Cannula 2.0 28 73 21 96 10/09/19 08:47 Room Air 10/09/19 08:30 97.3 68 18 118/70 (86) 99 10/09/19 08:27 97 Nasal Cannula 2.0 28 10/09/19 08:27 79 20 97 Nasal Cannula 2.0 28 10/09/19 08:00 89 10/09/19 04:00 81 10/09/19 04:00 98.2 76 19 123/65 (84) 98 10/09/19 01:12 85 97 10/09/19 00:00 98.1 64 20 155/91 (112) 97 10/09/19 00:00 75 10/08/19 23:25 84 22 96 Facial 28 10/08/19 22:23 87 18 98 Room Air 21 85 18 96 10/08/19 21:14 107 149/92 10/08/19 21:00 Room Air 10/08/19 20:00 98.1 70 19 149/92 (111) 96 10/08/19 20:00 91 10/08/19 19:21 92 20 97 Room Air 21 10/08/19 19:21 97 Room Air 21 10/08/19 16:00 98.6 78 19 139/84 (102) 91 10/08/19 16:00 96 Intake and Output 10/08/19 10/09/19 18:59 06:59 Intake Total 520 ml 200 ml Balance 520 ml 200 ml Intake Oral 520 ml Other 200 ml # Voids 7 4 # Bowel Movements 3 2 Laboratory Tests Test 10/09/19 07:55 White Blood Count 2.9 K/UL (4.8-10.8) L Red Blood Count 4.82 M/UL (4.20-5.40) Hemoglobin 14.2 G/DL (12.0-16.0) Hematocrit 44.3 % (37.0-47.0) Mean Corpuscular Volume 92 FL (80-99) Mean Corpuscular Hemoglobin 29.5 PG (27.0-31.0) Mean Corpuscular Hemoglobin Concent 32.1 G/DL (32.0-36.0) Red Cell Distribution Width 12.2 % (11.6-14.8) Platelet Count 307 K/UL (150-450) Mean Platelet Volume 6.2 FL (6.5-10.1) L Neutrophils (%) (Auto) % (45.0-75.0) Lymphocytes (%) (Auto) % (20.0-45.0) Monocytes (%) (Auto) % (1.0-10.0) Eosinophils (%) (Auto) % (0.0-3.0) Basophils (%) (Auto) % (0.0-2.0) Differential Total Cells Counted 100 Neutrophils % (Manual) 53 % (45-75) Lymphocytes % (Manual) 20 % (20-45) Monocytes % (Manual) 23 % (1-10) H Eosinophils % (Manual) 2 % (0-3) Basophils % (Manual) 2 % (0-2) Band Neutrophils 0 % (0-8) Platelet Estimate Adequate Platelet Morphology Normal Sodium Level 140 MMOL/L (136-145) Potassium Level 3.8 MMOL/L (3.5-5.1) Chloride Level 103 MMOL/L (98-107) Carbon Dioxide Level 31 MMOL/L (21-32) Anion Gap 6 mmol/L (5-15) Blood Urea Nitrogen 13 mg/dL (7-18) Creatinine 0.9 MG/DL (0.55-1.30) Estimat Glomerular Filtration Rate > 60 mL/min (>60) Glucose Level 106 MG/DL (74-106) Calcium Level 8.7 MG/DL (8.5-10.1) Pro-B-Type Natriuretic Peptide 394 pg/mL (0-125) H Objective HEAD AND NECK: No JVD. LUNGS: Clear. CARDIOVASCULAR: Regular S1 and S2 with no gallop or murmur. ABDOMEN: Soft. EXTREMITIES: No pitting edema. Lucas Low MD Oct 09, 2019 14:50
[2019-10-09 16:00] VITALS: BP 119/80
--- NOTE | 2019-10-09 19:58 | NUR ---
HAND-OFF: Report given to Sury/MARIELLA.
[2019-10-09 20:00] VITALS: BP 156/95
--- NOTE | 2019-10-09 20:20 | NUR ---
NURSE NOTES: Received pt and report from Suzie More RN. Pt is A/Ox4. IV site intact, asymptomatic, and patent. Bed is in the lowest position and locked. Call light and bedside table is within reach. No sign/symptoms of acute distress noted at this time, on room air and will be on bipap at hs. Will continue plan of care.
[2019-10-10] VITALS: BP 140/83
[2019-10-10 04:00] VITALS: BP 151/73
[2019-10-10] MEDS: Sucralfate 1gm tab ORAL SCH ×4 (06:35→21:00)
[2019-10-10 08:00] VITALS: BP 125/65
--- NOTE | 2019-10-10 08:38 | NUR ---
NURSE NOTES: pt in bed resting, food tray at bedside. pt on hall monitor no signs of cardiac or respiratory distress. pt complains of flulike symptoms. Bed is locked and in lowest position. Call light within reach. Will continue to monitor labs and follow plans of care.
--- NOTE | 2019-10-10 08:39 | NUR ---
HAND-OFF: Report given to MARIELLA Larsen
[2019-10-10] MEDS: Losartan 50mg tab ORAL SCH (10:06)
[2019-10-10] MEDS: Furosemide 40mg tab ORAL SCH (10:07)
[2019-10-10] MEDS: Heparin 5000 units/ml inj SUBQ SCH ×2 (10:10→22:01)
[2019-10-10 12:00] VITALS: BP 106/67
--- NOTE | 2019-10-10 13:39 | General Progress Note ---
Assessment/Plan Status: stable Assessment/Plan: 64-year-old female who presented with shortness of breath. In the ER she was found to be hypertensive to systolic blood pressure of 168, elevated troponins up to 0.157 then normal, pro BMP 1231, her EKG showed normal sinus rhythm at 96 bpm, left atrial enlargement, LVH, prolonged QTC, no acute ST-T changes. CXR with mild edema. 1. Hypertensive urgency 2. NSTEMI 3. Hypertension 4. SOPHIA, noncompliant with home CPAP 5. Hyperlipidemia 6. Morbid Obesity 7. GERD 8. Medication non compliance 9. Acute on chronic diastolic CHF Plan continue telemetry stress test positive for anterior wall ischemia PLAN IS TO TRANSFER PATIENT TO [facility]. ACCEPTING PHYSICIAN WILL BE DR MONTGOMERY Continue home atorvastatin, amlodipine, carvedilol. Aspirin, Norvasc, Cozaar Cardiology following 2D echocardiogram to evaluate LV function and look for any wall motion abnormalities---> LVH, diastolic dysfunction, atrial enlargement one dose of lasix 40mg IV, monitor for improvement, cont lasix 40 mg daily Blood pressure control Nocturnal CPAP for SOPHIA Patient counseled on weight loss. Patient offered counseling services for grief however she refused saying her daughters are her counselors I spent 35 minutes on this encounter. Greater than 50% spent on counseling care coordination. Subjective Date patient seen: Oct 10, 2019 Time patient seen: 09:00 ROS Limited/Unobtainable: No Constitutional: Denies: chills, fever Cardiovascular: Denies: chest pain Respiratory: Denies: cough, shortness of breath Gastrointestinal/Abdominal: Denies: abdominal pain Allergies: Coded Allergies: PANTOPRAZOLE (Verified Allergy, Unknown, 10/04/19) Subjective Follow up for medical management, NSTEMI, pending transfer to OSH for [facility]. Slept well with Restoril given last night Objective Last 24 Hour Vital Signs Date Time Temp Pulse Resp B/P (MAP) Pulse Ox O2 Delivery O2 Flow Rate FiO2 10/10/19 10:07 64 125/65 10/10/19 10:07 64 125/65 10/10/19 10:06 125/65 10/10/19 09:02 Room Air Room Air 10/10/19 08:00 95 10/10/19 08:00 96.1 64 19 125/65 (85) 95 10/10/19 04:00 82 10/10/19 04:00 97.2 63 17 151/73 (99) 94 10/10/19 00:53 80 16 98 Facial 28 10/10/19 00:00 97.0 83 18 140/83 (102) 94 10/10/19 00:00 75 10/09/19 23:43 81 18 98 Facial 28 10/09/19 21:37 86 156/95 10/09/19 21:16 98 Nasal Cannula 2.0 28 10/09/19 21:15 81 20 99 Nasal Cannula 2.0 28 77 20 98 10/09/19 21:00 Room Air Room Air 10/09/19 20:00 96.9 86 18 156/95 (115) 93 10/09/19 20:00 78 10/09/19 16:00 98.6 60 19 119/80 (93) 97 10/09/19 16:00 93 10/09/19 15:14 85 21 98 Nasal Cannula 2.0 28 86 23 95 Intake and Output 10/09/19 10/10/19 19:00 07:00 Intake Total 140 ml 140 ml Output Total 1200 ml Balance -1060 ml 140 ml Intake Oral 140 ml 140 ml Output Urine Total 1200 ml # Voids 3 5 # Bowel Movements 1 Height (Feet): 5 Height (Inches): 11.00 Weight (Pounds): 246 General Appearance: no apparent distress, alert Neck: normal alignment Cardiovascular: normal rate, regular rhythm Respiratory/Chest: lungs clear, normal breath sounds, no respiratory distress Ridge Recio MD Oct 10, 2019 13:38
[2019-10-10] MEDS: Albuterol/Ipratropium 3ml neb HHN PRN (15:41)
[2019-10-10 16:00] VITALS: BP 122/77
--- NOTE | 2019-10-10 17:29 | NUR ---
CASE MANAGEMENT:REVIEW 10/09/19 SI: NSTEMI STRESS TEST SUSPICIOUS FOR ANTERIOR ISCHEMIA T 96.9 HR 86 RR 18 B/P 156/95 SATS 93% ON RA LABS: WBC 2.9 BNP 394 IS: LASIX PO QD CARAFATE PO AC+HS NORVASC PO QD COZAAR PO QD LIPITOR PO QHS COREG PO Q12 NEURONTIN PO TID HEPARIN SQ Q12 : TELEMETRY STATUS 10/10/19 SI: NSTEMI STRESS TEST SUSPICIOUS FOR ANTERIOR ISCHEMIA T 97 HR 83 RR 18 B/P 140/83 SATS 95% ON RA NO LABS TODAY IS: LASIX PO QD CARAFATE PO AC+HS NORVASC PO QD COZAAR PO QD LIPITOR PO QHS COREG PO Q12 NEURONTIN PO TID HEPARIN SQ Q12 : TELEMETRY STATUS
--- NOTE | 2019-10-10 19:03 | NUR ---
HAND-OFF: Report given to Diana/MARIELLA.
[2019-10-10 20:00] VITALS: BP 125/56
[2019-10-11] VITALS: BP 128/64
[2019-10-11 04:00] VITALS: BP 105/64
[2019-10-11] MEDS: Sucralfate 1gm tab ORAL SCH ×2 (06:34→11:47)
--- NOTE | 2019-10-11 07:54 | NUR ---
HAND-OFF: Report given to MARIELLA Lee.
--- NOTE | 2019-10-11 07:55 | NUR ---
NURSE NOTES: Pt in Alert and oriented x4 and able to make needs known. Pt in Bed lowest position and locked. IV site patent and asymptomatic. Denied SOB and chest pain. Will continue to plan of care.
[2019-10-11 08:00] VITALS: BP 115/65
--- NOTE | 2019-10-11 08:40 | General Progress Note ---
Assessment/Plan Problem List: (1) Dyspnea ICD Codes: R06.00 - Dyspnea, unspecified SNOMED: 694043959 Qualifiers: Qualified Codes: R06.00 - Dyspnea, unspecified (2) Chest pain ICD Codes: R07.9 - Chest pain, unspecified SNOMED: 18854882 Qualifiers: Qualified Codes: R07.9 - Chest pain, unspecified (3) Elevated troponin I level ICD Codes: R79.89 - Other specified abnormal findings of blood chemistry SNOMED: 246488134 (4) Obesity (BMI 30.0-34.9) ICD Codes: E66.9 - Obesity, unspecified SNOMED: 696815966671313 (5) HTN (hypertension) ICD Codes: I10 - Essential (primary) hypertension SNOMED: 36652116 (6) SOPHIA (obstructive sleep apnea) ICD Codes: G47.33 - Obstructive sleep apnea (adult) (pediatric) SNOMED: 99920784 (7) HLD (hyperlipidemia) ICD Codes: E78.5 - Hyperlipidemia, unspecified SNOMED: 95216495 (8) GERD (gastroesophageal reflux disease) ICD Codes: K21.9 - Gastro-esophageal reflux disease without esophagitis SNOMED: 224588989 Status: stable Assessment/Plan: This is a 64-year-old female who presented with shortness of breath. In the ER she was found to be hypertensive to systolic blood pressure of 168, elevated troponins up to 0.157 then normal, pro BMP 1231, her EKG showed normal sinus rhythm at 96 bpm, left atrial enlargement, LVH, prolonged QTC, no acute ST-T changes. CXR with mild edema. 1. Hypertensive urgency 2. Elevated troponin levels without chest pain or acute ST-T changes on EKG 3. Hypertension 4. SOPHIA, noncompliant with home CPAP 5. Hyperlipidemia 6. Obesity 7. GERD 8. Medication non compliance Plan telemetry Serial cardiac enzymes and EKGs, last troponin negative stress test positive for anterior wall ischemia PLAN IS TO TRANSFER PATIENT TO [facility]. ACCEPTING PHYSICIAN WILL BE DR MONTGOMERY Continue home atorvastatin, amlodipine, carvedilol. Aspirin, Norvasc, cozar Cardiology consult appreciated 2D echocardiogram to evaluate LV function and look for any wall motion abnormalities---> LVH, diastolic dysfunction, atrial enlargement one dose of lasix 40mg IV, monitor for improvement, started lasix 40 mg daily Blood pressure control Resume CPAP nightly Patient counseled on weight loss. Patient offered counseling services for grief however she refused saying her daughters are her counselors I spent 40 minutes on this encounter. Greater than 50% spent on counseling care coordination. Plan of care discussed with patient, cardiology and RN. Time of note may not reflect time of encounter. Subjective Date patient seen: Oct 11, 2019 ROS Limited/Unobtainable: No Constitutional: Denies: no symptoms, chills, diaphoresis, fever, malaise, weakness, other HEENT: Denies: no symptoms, eye pain, blurred vision, tearing, double vision, ear pain, ear discharge, nose pain, nose congestion, throat pain, throat swelling, mouth pain, mouth swelling, other Cardiovascular: Denies: no symptoms, chest pain, edema, irregular heart rate, lightheadedness, palpitations, syncope, other Respiratory: Denies: no symptoms, cough, orthopnea, shortness of breath, SOB with excertion, SOB at rest, sputum, stridor, wheezing, other Genitourinary: Denies: no symptoms, burning, discharge, frequency, flank pain, hematuria, incontinence, pain, urgency, other Neurologic/Psychiatric: Denies: no symptoms, anxiety, depressed, emotional problems, headache, numbness, paresthesia, pre-existing deficit, seizure, tingling, tremors, weakness, other Hematologic/Lymphatic: Denies: no symptoms, anemia, easy bleeding, easy bruising, other Allergies: Coded Allergies: PANTOPRAZOLE (Verified Allergy, Unknown, 10/04/19) Subjective following up for chest pain and nuclear stress test positive for anterior wall ischemia. waiting to transfer for cath. accepted to [facility]. waiting for a bed. no acute events overnight Objective Last 24 Hour Vital Signs Date Time Temp Pulse Resp B/P (MAP) Pulse Ox O2 Delivery O2 Flow Rate FiO2 10/11/19 08:00 97.5 87 20 115/65 (82) 95 10/11/19 04:00 69 10/11/19 04:00 97.8 82 19 105/64 (78) 95 10/11/19 03:04 64 16 98 Facial 28 10/11/19 01:42 67 17 98 Facial 28 10/11/19 00:00 70 10/11/19 00:00 98.0 80 18 128/64 (85) 96 1/12/20 22:08 83 125/56 10/10/19 21:00 Room Air Room Air 10/10/19 20:00 67 10/10/19 20:00 97.7 83 18 125/56 (79) 96 10/10/19 19:48 96 Nasal Cannula 2.0 28 10/10/19 19:47 82 20 95 Nasal Cannula 2.0 28 10/10/19 16:00 83 10/10/19 16:00 98.6 60 18 122/77 (92) 92 10/10/19 15:44 74 22 99 Nasal Cannula 2.0 28 73 22 96 10/10/19 15:44 73 22 96 Nasal Cannula 2.0 28 10/10/19 15:43 96 Nasal Cannula 2.0 28 10/10/19 12:00 98.1 63 19 106/67 (80) 95 10/10/19 11:35 86 10/10/19 10:07 64 125/65 10/10/19 10:07 64 125/65 10/10/19 10:06 125/65 10/10/19 09:02 Room Air Room Air Intake and Output 10/10/19 10/11/19 19:00 07:00 Intake Total 140 ml 240 ml Output Total 6500 ml Balance -6360 ml 240 ml Intake Oral 140 ml 240 ml Output Urine Total 6500 ml # Voids 3 4 # Bowel Movements 2 Height (Feet): 5 Height (Inches): 11.00 Weight (Pounds): 246 Objective General Appearance: WD/WN, no apparent distress, obese Lines, tubes and drains: peripheral HEENT: normocephalic, atraumatic, anicteric, mucous membranes moist, PERRL, EOMI Neck: non-tender, supple Respiratory/Chest: lungs clear, normal breath sounds, no respiratory distress, no accessory muscle use Cardiovascular/Chest: normal peripheral pulses, normal rate, regular rhythm, no gallop/murmur, no JVD Abdomen: normal bowel sounds, non tender, soft, no organomegaly, no mass Extremities: normal range of motion, non-tender, no edema, no cyanosis Skin Exam: normal pigmentation, warm/dry Neurologic: residential appraiser II-XII grossly normal, no motor/sensory deficits, alert, oriented x 3, responsive, normal mood/affect Musculoskeletal: normal muscle bulk Kavian,Darien M.D. Oct 11, 2019 08:40
[2019-10-11] MEDS: Furosemide 40mg tab ORAL SCH (08:57)
[2019-10-11] MEDS: Heparin 5000 units/ml inj SUBQ SCH (08:58)
[2019-10-11] MEDS: Losartan 50mg tab ORAL SCH (09:03)
--- NOTE | 2019-10-11 10:16 | Cardiac Electrophysiology PN ---
Assessment/Plan Assessment/Plan 1. Chest pain and troponin leak in a patient with hypertension and stress test that showed anterior ischemia Awaiting transfer to [facility] for cardiac cath as the contracted hospital EF 55% 2. Hypertension. On Coreg 3.125 bid, Norvasc 10, Cozaar 100 daily and Lasix 40 po daily 3. Obesity. 4. Anxiety disorder. SONDRA RN Subjective Subjective No CP or SOB. Stress test showed anterior ischemia. Still awaiting transfer for cardiac cath Objective Last 24 Hour Vital Signs Date Time Temp Pulse Resp B/P (MAP) Pulse Ox O2 Delivery O2 Flow Rate FiO2 10/11/19 09:03 115/65 10/11/19 08:57 87 115/65 10/11/19 08:57 87 115/65 10/11/19 08:00 97.5 87 20 115/65 (82) 95 10/11/19 08:00 91 10/11/19 04:00 69 10/11/19 04:00 97.8 82 19 105/64 (78) 95 10/11/19 03:04 64 16 98 Facial 28 10/11/19 01:42 67 17 98 Facial 28 10/11/19 00:00 70 10/11/19 00:00 98.0 80 18 128/64 (85) 96 10/10/19 22:08 83 125/56 10/10/19 21:00 Room Air Room Air 10/10/19 20:00 67 10/10/19 20:00 97.7 83 18 125/56 (79) 96 10/10/19 19:48 96 Nasal Cannula 2.0 28 10/10/19 19:47 82 20 95 Nasal Cannula 2.0 28 10/10/19 16:00 83 10/10/19 16:00 98.6 60 18 122/77 (92) 92 10/10/19 15:44 74 22 99 Nasal Cannula 2.0 28 73 22 96 10/10/19 15:44 73 22 96 Nasal Cannula 2.0 28 10/10/19 15:43 96 Nasal Cannula 2.0 28 10/10/19 12:00 98.1 63 19 106/67 (80) 95 10/10/19 11:35 86 10/10/19 10:07 64 125/65 10/10/19 10:07 64 125/65 Intake and Output 10/10/19 10/11/19 19:00 07:00 Intake Total 140 ml 240 ml Output Total 6500 ml Balance -6360 ml 240 ml Intake Oral 140 ml 240 ml Output Urine Total 6500 ml # Voids 3 4 # Bowel Movements 2 Objective HEAD AND NECK: No JVD. LUNGS: Clear. CARDIOVASCULAR: Regular S1 and S2 with no gallop or murmur. ABDOMEN: Soft. EXTREMITIES: No pitting edema. Lucas Low MD Oct 11, 2019 10:16
--- NOTE | 2019-10-11 11:40 | NUR ---
NURSE NOTES: Report given to anatoly WOLFF @[facility]. The patient alert and orientedx4 and denied SOB, and chest pain. BLS ambulance came and report given to ambulance personnel.
--- NOTE | 2019-10-11 11:51 | Discharge Summary ---
Discharge Summary Hospital Course Date of Admission Oct 04, 2019 at 04:51 Date of Discharge 10/11/19 Admitting Diagnosis chest pain, sob, nstemi HPI Danisha Can is a 64 year old female who was admitted on Oct 04, 2019 at 04: 51 for Chest Pain/Shortness Of Breath/Nstemi Consultations cardiology Procedures nuclear stress test Hospital Course This is a 64-year-old female who presented with shortness of breath. In the ER she was found to be hypertensive to systolic blood pressure of 168, elevated troponins up to 0.157 then normal, pro BMP 1231, her EKG showed normal sinus rhythm at 96 bpm, left atrial enlargement, LVH, prolonged QTC, no acute ST-T changes. CXR with mild edema. 1. Hypertensive urgency 2. Elevated troponin levels without chest pain or acute ST-T changes on EKG 3. Hypertension 4. SOPHIA, noncompliant with home CPAP 5. Hyperlipidemia 6. Obesity 7. GERD 8. Medication non compliance Plan telemetry Serial cardiac enzymes and EKGs, last troponin negative stress test positive for anterior wall ischemia PLAN IS TO TRANSFER PATIENT TO [facility]. ACCEPTING PHYSICIAN WILL BE DR MONTGOMERY Continue home atorvastatin, amlodipine, carvedilol. Aspirin, Norvasc, cozar Cardiology consult appreciated 2D echocardiogram to evaluate LV function and look for any wall motion abnormalities---> LVH, diastolic dysfunction, atrial enlargement one dose of lasix 40mg IV, monitor for improvement, started lasix 40 mg daily Blood pressure control Resume CPAP nightly Patient counseled on weight loss. Patient offered counseling services for grief however she refused saying her daughters are her counselors I spent 40 minutes on this encounter. Greater than 50% spent on counseling care coordination. Plan of care discussed with patient, cardiology and RN. Time of note may not reflect time of encounter. Discharge Medications New Medications: Furosemide* (Lasix*) 40 Mg Tablet 40 MG ORAL DAILY for 30 Days, #30 TAB Continued Medications: Amlodipine Besylate* (Amlodipine Besylate*) 10 Mg Tablet 10 MG ORAL DAILY for HTN, TAB (This prescription has been renewed) Atorvastatin Calcium* (Atorvastatin Calcium*) 20 Mg Tablet 10 MG ORAL BEDTIME for high cholesterol, TAB (This prescription has been renewed ) Balsalazide Disodium (Balsalazide Disodium) 750 Mg Capsule 750 MG PO THREE TIMES A DAY for inflammatory bowel disease, CAP (This prescription has been renewed) Carvedilol* (Carvedilol*) 3.125 Mg Tablet 3.125 MG ORAL EVERY 12 HOURS for HTN, TAB (This prescription has been renewed) Gabapentin* (Gabapentin*) 300 Mg Capsule 300 MG ORAL THREE TIMES A DAY for numbness on fingers, CAP 0 Refills (This prescription has been renewed) Losartan Potassium* (Losartan Potassium*) 50 Mg Tablet 100 MG ORAL DAILY for HTN, TAB (This prescription has been renewed) Pantoprazole* (Pantoprazole*) 40 Mg Tablet.dr 40 MG ORAL EVERY 12 HOURS for heart burn, TAB (This prescription has been renewed) Sucralfate* (Carafate*) 1 Gm Tablet 1 GM ORAL FOUR TIMES A DAY for heart burn, TAB (This prescription has been renewed) Discharge Condition Upon Discharge: stable Discharge Disposition Patient was discharged to [facility] Discharge Diagnoses: (1) NSTEMI (non-ST elevated myocardial infarction) (2) Dyspnea (3) Chest pain (4) HTN (hypertension) (5) HLD (hyperlipidemia) (6) SOPHIA (obstructive sleep apnea) (7) Obesity (BMI 30.0-34.9) (8) GERD (gastroesophageal reflux disease) (9) Elevated troponin I level (10) Diastolic CHF, acute on chronic Darien Rose M.D. Oct 11, 2019 11:50
[2019-10-11 12:00] VITALS: BP 101/61
--- NOTE | 2019-10-11 12:00 | NUR ---
Discharge: Patient is being transferred to [facility] for high level of care. Awake, alert and oriented x4. All relevant medical records given to ambulance personnels. Patient verbalized understanding of transferring to high level of care. Patient signed patient belonging list upon discharge. All medical devices such as ID band and quality assurance monitor body were removed but IV line kept. Patient picked up by ambulance via gurney with 2EMTS. The patient denied any chest pain or SOB at this time.
== END 2019-10-11 12:00 | DRG 280 ==
LOC: EDBD 00:58 → EMR 01:30 → 2E 04:51 → EDBEDREQ 05:40
DX: I21.4 Non-ST elevation (NSTEMI) myocardial infarction (principal); I50.33 Acute on chronic diastolic (congestive) heart failure; I42.9 Cardiomyopathy, unspecified; E66.9 Obesity, unspecified; Z68.30 Body mass index [BMI] 30.0-30.9, adult; Z96.652 Presence of left artificial knee joint; G47.33 Obstructive sleep apnea (adult) (pediatric); E78.5 Hyperlipidemia, unspecified; K21.9 Gastro-esophageal reflux disease without esophagitis; Z91.14 Patient's other noncompliance with medication regimen; Z88.8 Allergy status to other drugs, medicaments and biological substances; I11.0 Hypertensive heart disease with heart failure; F41.9 Anxiety disorder, unspecified; Z91.19 Patient's noncompliance with other medical treatment and regimen; I16.0 Hypertensive urgency; I10 Essential (primary) hypertension; R06.00 Dyspnea, unspecified
CPT/HCPCS: 36415; 71045; 78452; 80048; 80053; 80061; 82962; 83036; 83690; 83880; 84443; 84484; 85007; 85025; 93005; 93017; 93306; 94640; 94660; 94664; 96360; 96372; 99291; J2785; J7030; J7620; J8499